=== PATIENT | male | born 1950 | race Caucasian/White ===

== ENCOUNTER 2025-02-20 11:39 | Day surgery (SDC) | payer MEDICARE, SELFPAY ==
--- OUTSIDE RECORDS SUMMARY | 2024-02-27 19:47 | XMS_ITS ---
Author Name [facility] [place] Address [address] [place] [address] Care Team Providers Care Transport Tech Name Role Phone LAUREANO MURILLO Primary Care Provide r Unavailable Insurance Providers: All historical and current Section Date Range: From patient's date of to the date document was created. This section includes the names of all active insurance providers for the patient. Insurance Provider Type of Coverage Plan Name Start of Policy Coverage End of Policy Coverage Group Number Member ID Insurance Provider's Telephone Number Policy Cheung's Name Patient's Relationship to Policy Cheung [place] SUPPLEMEN TAL MEDEX BRONZ Daxa Jun 20, 2014 [id number] Keven TAVERAS PATIENT MEDICARE (WNR) MEDICARE (M) PART A Sep 18, 2006 PART A [id number] Keven TAVERAS PATIENT MEDICARE (WNR) MEDICARE (M) PART B Sep 18, 2006 PART B [id number] Keven TAVERAS PATIENT Selected Encounter This section includes the information on record at [place] for the Encounter. Date/Time Encounter Type Encounter Description Reason Pro vider Source Feb 27, 2024 11:47 PM Outpatient Encounter ADMIN PAT ACTIVTIES (MASNONCT) IHE Encounter Template Text not used by [place] Plan of Treatment: Future Appointments (+ 6 months) and Future Tests (+/- 45 days) The Plan of Treatment section includes future care activities for the patient from all [place] [facility]. This section includes future appointments and future orders which are active, pending or scheduled. Future Appointments This section includes appointments that were scheduled to occur 6 months from the date of the Encounter, up to a maximum of 20 appointments. The data comes from all [place] treatment facilities. Appointment Date/Time Appointment Type Appointme nt Facility Name Jul 06, 2024 02:00 PM AMBULATORY - MEDICINE [facility] Social History: Smoking Status (Most current) and Tobacco Use (All prior to encounter date) This section includes the most current, and the historical, smoking and tobacco- related health factors from the [place] facility where the Encounter took place. Current Smoking Status This section includes the most current smoking, or tobacco-related health factor, from the [place] facility where the Encounter took place. Date/Time Current Smoking Status Comment Facil ity Sep 01, 2023 02:57 PM [facility] Tobacco Use History This section includes a history of the smoking, or tobacco-related health factors, that were collected on or before the date of the Encounter. The data comes from the [place] facility where the Encounter took place. Date/Time Smoking Status/Tobacco Use Comment F acility Apr 09, 2022 02:24 PM VA-TOBACCO FORMER USER [place] [facility] [place] [facility] Apr 09, 2022 02:24 PM VA-TOBACCO QUIT 1 TO < 5 YRS [place] [facility] [place] [facility] Jan 31, 2020 02:53 PM VA-TOBACCO FORMER USER [place] [facility] [place] [facility] Jan 31, 2020 02:53 PM VA-TOBACCO QUIT 1 TO < 5 YRS [place] [facility] [place] [facility] Feb 19, 2004 03:22 PM CURRENT SMOKER [place] [facility] Advance Directives: All historical and current Section Date Range: From patient's date of to the date document was created. This section includes ALL of a patient's completed or amended [place] Advance and Rescinded Directives. The entries below indicate that a directive exists for the patient, but an actual copy is not included with this document. The data comes from all [place] facilities. Date Advance Directives Provider Source Aug 02, 2019 ADVANCE DIRECTIVE ROCÍO WOODS [facility] Aug 02, 2019 ADVANCE DIRECTIVE WESTONLUIS KRISH [facility] May 13, 2004 ADVANCE DIRECTIVE KACY ROSARIO [facility] Encounter Notes: All associated encounter notes This section contains the clinical notes associated to the Encounter. Date/Time Encounter Note(s) Provider Source Mar 06, 2024 02:05 PM ADDENDUM: LOCAL TITLE: Addendum STANDARD TITLE: ADDENDUM DATE OF NOTE: MAR 06, 2024@14:05:14 ENTRY DATE: MAR 06, 2024@14:05:15 AUTHOR: MARLYN LAWLER EXP COSIGNER: URGENCY: STATUS: COMPLETED Patient contacted pharmacy call center again regarding renewal status of: [id number] ASCORBIC ACID 500MG TAB Please review and renew if appropriate. /xochitl/ Marlyn Lawler CPhT Acute Dialysis Registered Nurse, [place]/Pharmacy Customer Care Signed: 03/06/2024 14:05 Receipt Acknowledged By: 03/08/2024 06:30 /xochitl/ RAFAEL GONZALEZ NP NURSE PRACTITIONER for LAUREANO MURILLO 03/07/2024 10:52 /es/ HÉCTOR CORTES RN REGISTERED NURSE ====== --- Original Document --- 02/27/24 V1 PHARMACY CUSTOMER CARE MEDICATION RENEWAL: Date: Feb Division: [facility] referred by Pharmacy Call Center for medication renewal: Non-controlled/maintenan ce medication Medications requested: [id number] ASCORBIC ACID 500MG TAB Defer to primary care provider To be mailed . Please review and renew if appropriate. *This note was generated by [facility]/[place] Pharmacy Customer Care. If you have any questions or need assistance, do not contact this author. Please refer all questions to your local, on-site pharmacy departments. /xochitl/ JASON PARRA CPhT Acute Dialysis Registered Nurse, [place]/Pharmacy Customer Care Signed: 02/27/2024 23:47 Receipt Acknowledged By: 03/08/2024 06:29 /gricelda GONZALEZ NP NURSE PRACTITIONER for LAUREANO Baca LIDIA 03/01/2024 16:25 /xochitl/ HÉCTOR CORTES RN REGISTERED NURSE MARLYN LAWLER [place] [facility] Feb 27, 2024 11:47 PM PHARMACY NOTE: LOCAL TITLE: V1 PHARMACY CUSTOMER CARE MEDICATION RENEWAL STANDARD TITLE: PHARMACY NOTE DATE OF NOTE: FEB 27, 2024@23:47 ENTRY DATE: FEB 27, 2024@23:47:19 AUTHOR: JASON PARRA COSIGNER: URGENCY: STATUS: COMPLETED V1 PHARMACY CUSTOMER CARE MEDICATION RENEWAL Has ADDENDA Date: Feb Division: [facility] referred by Pharmacy Call Center for medication renewal: Non-controlled/maintenan ce medication Medications requested: [id number] ASCORBIC ACID 500MG TAB Defer to primary care provider To be mailed . Please review and renew if appropriate. *This note was generated by [facility]/[place] Pharmacy Customer Care. If you have any questions or need assistance, do not contact this author. Please refer all questions to your local, on-site pharmacy departments. /xochitl/ JASON PARRA CPhT Acute Dialysis Registered Nurse, [place]/Pharmacy Customer Care Signed: 02/27/2024 23:47 Receipt Acknowledged By: 03/08/2024 06:29 /gricelda GONZALEZ NP NURSE PRACTITIONER for TUCKERJOANNE Baca LIDIA 03/01/2024 16:25 /xochitl/ HÉCTOR CORTES RN REGISTERED NURSE 03/06/2024 ADDENDUM STATUS: COMPLETED Patient contacted pharmacy call center again regarding renewal status of: [id number] ASCORBIC ACID 500MG TAB Please review and renew if appropriate. /gricelda Lawler CPhT Acute Dialysis Registered Nurse, [place]/Pharmacy Customer Care Signed: 03/06/2024 14:05 Receipt Acknowledged By: * AWAITING SIGNATURE * TUCKER MURILLO 03/07/2024 10:52 /xochitl/ HÉCTOR CORTES RN REGISTERED NURSE JASON PARRA [facility]
--- OUTSIDE RECORDS SUMMARY | 2024-03-05 18:09 | XMS_ITS ---
Author Name [facility] [place] Address [address] [place] [address] Care Team Providers Care Vulcanizer Name Role Phone LAUREANO MURILLO Primary Care [...] TAL MEDEX BRONZ Daxa Jun 20, 2014 [id number] Keven TAVERAS PATIENT MEDICARE (WNR) MEDICARE (M) PART B Sep 18, 2006 PART B [id number] Keven TAVERAS PATIENT MEDICARE (WNR) MEDICARE (M) PART A Sep 18, 2006 PART A [id number] Keven TAVERAS PATIENT Selected Encounter This section includes the information on record at [place] for the Encounter. Date/Time Encounter Type Encounter Description Reason Pro vider Source Mar 05, 2024 10:09 PM Outpatient Encounter ADMIN PAT ACTIVTIES (MASNONCT) IHE Encounter Template Text not used by [place] Plan of Treatment: Future Appointments (+ 6 months) and Future Tests (+/- 45 days) The Plan of Treatment section includes future care activities for the patient from all [place] [facility]. This section includes future appointments and future orders which are active, pending or scheduled. Future Appointments This section includes appointments that were scheduled to occur 6 months from the date of the Encounter, up to a maximum of 20 appointments. The data comes from all [place] treatment facilities. Appointment Date/Time Appointment Type Appointme nt Facility Name Jul 06, 2024 02:00 PM AMBULATORY - MEDICINE [facility] Social History: Smoking Status (Most current) and Tobacco Use (All prior to encounter date) This section includes the most current, and the historical, smoking and tobacco- related health factors from the [place] facility where the Encounter took place. Current Smoking Status This section includes the most current smoking, or tobacco-related health factor, from the [place] facility where the Encounter took place. Date/Time Current Smoking Status Comment Facil ity Sep 01, 2023 02:57 PM [facility] Tobacco Use History This section includes a history of the smoking, or tobacco-related health factors, that were collected on or before the date of the Encounter. The data comes from the [place] facility where the Encounter took place. Date/Time Smoking Status/Tobacco Use Comment F acility Apr 09, 2022 02:24 PM VA-TOBACCO FORMER USER [place] [facility] [facility] Apr 09, 2022 02:24 PM VA-TOBACCO QUIT 1 TO < 5 YRS [place] [facility] [place] [facility] Jan 31, 2020 02:53 PM VA-TOBACCO FORMER USER [place] [facility] [place] [facility] Jan 31, 2020 02:53 PM VA-TOBACCO QUIT 1 TO < 5 YRS [place] [facility] [place] [facility] Feb 19, 2004 03:22 PM CURRENT SMOKER [place] C [facility] Advance Directives: All historical and current Section Date Range: From patient's date of to the date document was created. This section includes ALL of a patient's completed or amended [place] Advance and Rescinded Directives. The entries below indicate that a directive exists for the patient, but an actual copy is not included with this document. The data comes from all [place] facilities. Date Advance Directives Provider Source Aug 02, 2019 ADVANCE DIRECTIVE ROCÍO WOODS [facility] Aug 02, 2019 ADVANCE DIRECTIVE LUIS ONTIVEROS [place] C NTRL [place] [facility] May 13, 2004 ADVANCE DIRECTIVE KACY ROSARIO [facility] Encounter Notes: All associated encounter notes This section contains the clinical notes associated to the Encounter. Date/Time Encounter Note(s) Provider Source Mar 05, 2024 10:09 PM PHARMACY NOTE: LOCAL TITLE: PHARMACY CUSTOMER CARE MEDICATION RENEWAL STANDARD TITLE: PHARMACY NOTE DATE OF NOTE: MAR 05, 2024@22:09 ENTRY DATE: MAR 05, 2024@22:09:22 AUTHOR: OCTAVIO WINCHESTER EXP COSIGNER: URGENCY: STATUS: COMPLETED Date: Feb Division: [facility] referred by Pharmacy Call Center for medication renewal: Non-controlled/maintenanc e medication Medications requested: [id number] ASPIRIN 81MG EC TAB Defer to primary care provider To be mailed . Please review and renew if appropriate. *This note was generated by [facility]/[place] Pharmacy Customer Care. If you have any questions or need assistance, do not contact this author. Please refer all questions to your local, on-site pharmacy departments. /xochitl/ OCTAVIO WINCHESTER CPhT [employer], [place]/PHARMACY CUSTOMER CARE Signed: 03/05/2024 22:09 Receipt Acknowledged By: 03/08/2024 06:30 /xochitl/ RAFAEL GONZALEZ NP NURSE PRACTITIONER for LAUREANO MURILLO 03/07/2024 10:51 /es/ HÉCTOR CORTES RN REGISTERED NURSE OCTAVIO WINCHESTER [place] [facility]
--- OUTSIDE RECORDS SUMMARY | 2024-05-07 09:30 | XMS_ITS | Encounter Summary ---
Author Name [facility] [place] Address [address] [place] [address] Care Team Providers Care Clip Loading Machine Adjuster Name Role Phone LAUREANO MURILLO Primary Care [...] Relationship to Policy Cheung BCBS [place] [facility] ARMENDAR[facility] CARLYLE Mittal Jun 20, 2014 [id number] Keven TAVERAS PATIENT MEDICARE (WNR) MEDICARE (M) PART B Sep 18, 2006 PART B [id number] Keven TAVERAS PATIENT MEDICARE (WNR) MEDICARE (M) PART A Sep 18, 2006 PART A [id number] Keven TAVERAS PATIENT Selected Encounter This section includes the information on record at [place] for the Encounter. Date/Time Encounter Type Encounter Description Reason Pro vider Source May 07, 2024 01:30 PM Outpatient Encounter PRIMARY CARE/MEDICINE IHE Encounter Template Text not used by [place] Plan of Treatment: Future Appointments (+ 6 months) and Future Tests (+/- 45 days) The Plan of Treatment section includes future care activities for the patient from all [place] treatmentfacilities. This section includes future appointments and future orders which are active, pending or scheduled. Future Appointments This section includes appointments that were scheduled to occur 6 months from the date of the Encounter, up to a maximum of 20 appointments. The data comes from all [place] treatment facilities. Appointment Date/Time Appointment Type Appointme nt Facility Name Jul 06, 2024 02:00 PM AMBULATORY - MEDICINE [facility] Sep 13, 2024 03:00 PM AMBULATORY - MEDICINE [place] [facility] Oct 11, 2024 11:00 AM AMBULATORY - PSYCHIATRY SP [facility] Social History: Smoking Status (Most current) and Tobacco Use (All prior to encounter date) This section includes the most current, and the historical, smoking and tobacco- related health factors from the [place] facility where the Encounter took place. Current Smoking Status This section includes the most current smoking, or tobacco-related health factor, from the [place] facility where the Encounter took place. Date/Time Current Smoking Status Comment Facil ity Jan 02, 2021 10:00 AM VA-TOBACCO FORMER USER [place] Tobacco Use History This section includes a history of the smoking, or tobacco-related health factors, that were collected on or before the date of the Encounter. The data comes from the [place] facility where the Encounter took place. Date/Time Smoking Status/Tobacco Use Comment F acility Jan 02, 2021 10:00 AM VA-TOBACCO QUIT 1 TO < 5 YRS [place] May 04, 2018 01:25 PM VA-TOBACCO FORMER USER [place] May 04, 2018 01:25 PM VA-TOBACCO QUIT 1 TO < 5 YRS [place] October 20, 2017 07:33 AM QUIT TOBACCO USE 1 -7 YEARS AGO [place] May 24, 2017 11:00 AM QUIT TOBACCO USE I N PAST YEAR reports quitting Jul 2016 [place] Oct 07, 2016 10:34 AM QUIT TOBACCO USE I N PAST YEAR reports quitting 08/14/16 [place] Aug 12, 2016 10:04 AM CURRENT SMOKER declines smoking cessation grp or meds [place] Apr 08, 2016 11:34 AM CURRENT SMOKER does not want to stop [place] Sep 12, 2008 11:35 AM QUIT TOBACCO USE > 7 YEARS AGO [place] Jul 09, 2008 01:40 PM CURRENT SMOKER Patient smokes four ciggs on a daily bases. [place] Feb 22, 2008 03:38 PM V1-PT DECLINES REF TO TOBACCO CESS [facility] Feb 22, 2008 03:38 PM V1-PT DECLINES TOB ACCO CESSATION [facility] Feb 22, 2008 03:38 PM V1-PT THINKING ABO [place] QUIT TOBACCO USE [place] May 31, 2007 11:40 AM [facility] May 31, 2007 11:40 AM V1-PT DECLINES REF TO TOBACCO CESS [facility] May 31, 2007 11:40 AM V1-PT DECLINES TOB ACCO CESSATION [facility] May 31, 2007 11:40 AM V1-PT NOT INTEREST ED IN QUIT TOBACCO USE [place] November 02, 2006 09:48 AM V1-PT NOT INTEREST ED IN QUIT TOBACCO USE [place] May 02, 2006 09:08 AM CURRENT SMOKER 3-5 cigaretts daily [place] May 27, 2005 01:20 PM CURRENT SMOKER see above [place] Feb 27, 2004 09:05 AM CURRENT SMOKER smokes only 3 cigarettes [place] Feb 26, 2003 10:45 AM CURRENT SMOKER occasional use of tobacco [place] Sep 18, 2002 10:27 AM CURRENT SMOKER currently smokes 1 or 2 per day [place] November 01, 2001 02:14 PM HISTORY OF SMOKING quit 1970' [place] Advance Directives: All historical and current Section Date Range: From patient's date of to the date document was created. This section includes ALL of a patient's completed or amended [place] Advance and Rescinded Directives. The entries below indicate that a directive exists for the patient, but an actual copy is not included with this document. The data comes from all [place] facilities. Date Advance Directives Provider Source Aug 02, 2019 ADVANCE DIRECTIVE ROCÍO WOODS [facility] Aug 02, 2019 ADVANCE DIRECTIVE LUIS ONTIVEROS [place] [facility] May 13, 2004 ADVANCE DIRECTIVE KACY ROSARIO [facility] Encounter Notes: All associated encounter notes This section contains the clinical notes associated to the Encounter. Date/Time Encounter Note(s) Provider Source May 01, 2024 11:51 AM ADMINISTRATIVE NOT E: LOCAL TITLE: ADMINISTRATIVE NOTE STANDARD TITLE: ADMINISTRATIVE NOTE DATE OF NOTE: MAY 01, 2024@11:51 ENTRY DATE: MAY 01, 2024@11:51:36 AUTHOR: JAXON CORDOVA EXP COSIGNER: URGENCY: STATUS: COMPLETED [facility] [address] [place] [id number] [phone] * KEVIN TAVERAS [address], [place] [address] Date: MAY 01, 2024 re: This is a reminder of your upcoming PCP appt with LAUREANO MURILLO. Appointment Date: Apr@13:30 Appointment Type: In-person visit Fasting blood work NON fasting blood work CONFIRMED WITH THE , WILL BRING IN LABWORK FROM OUTSIDE UROLOGIST Sincerely, Office Staff for: LAUREANO MURILLO Primary Care Provider [facility] [address] [place] [id number] T [phone] F [phone] Upcoming Appointments: 05/07/2024 13:30 CWM/SO/PACT 5 06/07/2024 11:00 CWM/SO/VVC/MHC/[place] 09/13/2024 15:00 NHM/OPTOMETRY/NITHIN APPOINTMENT ABBREVIATION READ (SPOPC OR SO = [facility]) (GOPC OR GO = [address]) (NHM or NO = [facility]) (VVC - Video Call) (Tel-X Telephone Visit) (TH - Telehealth) /es/ JAXON DE DIOS Signed: 05/01/2024 11:52 JAXON CORDOVA [place]
--- OUTSIDE RECORDS SUMMARY | 2024-06-11 16:00 | XMS_ITS ---
Author Name [facility] [place] [facility] [place] Address [address] [place] [address] Care Team Providers Care Academy Director Name Role Phone LAUREANO MURILLO Primary Care [...] TAL MEDEX BRONZ Daxa Jun 20, 2014 [id number] Keven TAVERAS PATIENT MEDICARE (WNR) MEDICARE (M) PART A Sep 18, 2006 PART A [id number] Keven TAVERAS PATIENT MEDICARE (WNR) MEDICARE (M) PART B Sep 18, 2006 PART B [id number] Keven TAVERAS PATIENT Selected Encounter This section includes the information on record at [place] for the Encounter. Date/Time Encounter Type Encounter Description Reason Pro vider Source Jun 11, 2024 08:00 PM Outpatient Encounter ADMIN PAT ACTIVTIES (MASNONCT) IHE Encounter Template Text not used by [place] Plan of Treatment: Future Appointments (+ 6 months) and Future Tests (+/- 45 days) The Plan of Treatment section includes [facility] care [facility] the [facility] This section includes future appointments and future orders which are active, pending or scheduled. Future Appointments This section includes appointments that were scheduled to occur 6 months from the date of the Encounter, up to a maximum of 20 appointments. The data comes from all [place] treatment facilities. Appointment Date/Time Appointment Type Appointme nt Facility Name Jul 06, 2024 02:00 PM AMBULATORY - MEDICINE [facility] Sep 13, 2024 03:00 PM [facility] Oct 11, 2024 11:00 AM AMBULATORY - PSYCHIATRY [facility] Nov 19, 2024 01:00 PM AMBULATORY - MEDICINE [facility] Active, Pending, and Scheduled Orders This section includes a listing of several types of active, pending, and scheduled orders, including clinic medications orders, diagnostic test orders, procedure orders and consult orders; where the start date of the order is 45 days before the date of the Encounter or 45 days after the date of theEncounter. The data comes from all [facility]. Test Date/Time Test Type Test Details Facility Name Jul 08, 2024 12:00 AM Laboratory - Chemi stry Order OCCULT BLOOD FIT X1 SCREEN(IN-HOUSE) STOOL [facility] Social History: Smoking Status (Most current) and Tobacco Use (All prior to encounter date) This section includes the most current, and the historical, smoking and tobacco- related health factors from the [place] facility where the Encounter took place. Current Smoking Status This section includes the most current smoking, or tobacco-related health factor, from the [place] facility where the Encounter took place. Date/Time Current Smoking Status Comment Facil ity Sep 01, 2023 02:57 PM VA-TOBACCO NEVER USED [facility] Tobacco Use History This section includes a history of the smoking, or tobacco-related health factors, that were collected on or before the date of the Encounter. The data comes from the [place] facility where the Encounter took place. Date/Time Smoking Status/Tobacco Use Comment F acility Apr 09, 2022 02:24 PM VA-TOBACCO FORMER USER [place] [facility] [place] [facility] Apr 09, 2022 02:24 PM VA-TOBACCO QUIT 1 TO < 5 YRS [place] [facility] [place] [facility] Jan 31, 2020 02:53 PM VA-TOBACCO [facility] Jan 31, 2020 02:53 PM VA-TOBACCO QUIT 1 TO < 5 YRS [place] [facility] [place] [facility] Feb 19, 2004 03:22 PM CURRENT SMOKER [facility] Advance Directives: All historical and current Section Date Range: From patient's date of to the date document was created. This section includes ALL of a patient's completed or amended [place] Advance and Rescinded Directives. The entries below indicate that a directive exists for the patient, but an actual copy is not included with this document. The data comes from all [place] facilities. Date Advance Directives Provider Source Aug 02, 2019 ADVANCE DIRECTIVE ROCÍO WOODS Aug 02, 2019 ADVANCE DIRECTIVE [place]IS [place] [facility] May 13, 2004 ADVANCE DIRECTIVE KACY ROSARIO COUNTS INCLUDE 234 BEDS AT THE [facility] Encounter Notes: All associated encounter notes This section contains the clinical notes associated to the Encounter. Date/Time Encounter Note(s) Provider Source Jun 11, 2024 08:00 PM PHARMACY NOTE: LOCAL TITLE: PHARMACY CUSTOMER CARE MEDICATION RENEWAL STANDARD TITLE: PHARMACY NOTE DATE OF NOTE: JUN 11, 2024@20:00 ENTRY DATE: JUN 11, 2024@20:00:40 AUTHOR: VIANEY OWUSU COSIGNER: URGENCY: STATUS: COMPLETED Date: May Division: [facility] referred by Pharmacy Call Center for medication renewal: Non-controlled/maintenan ce medication Medications requested: [id number] IBUPROFEN 600MG TAB The is out of medication and would appreciate expedited delivery if available. Please contact the outpatient pharmacy for assistance with shipment Defer to primary care provider To be mailed . Please review and renew if appropriate. *This note was generated by [facility] Pharm[facility] Customer Care. If you have any questions or need assistance, do not contact this author. Please refer all questions to your local, on-site pharmacy departments. /xochitl/ VIANEY OWUSU CPhT [employer] Sales Representative, [place]/Pharmacy Customer Care Signed: 06/11/2024 20:01 Receipt Acknowledged By: 06/16/2024 18:18 /es/ LAUREANO MURILLO MD PHYSICIAN 06/15/2024 14:50 /es/ HÉCTOR CORTES RN REGISTERED NURSE VIANEY OWUSU [facility]
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
--- OUTSIDE RECORDS SUMMARY | 2024-07-11 11:50 | XMS_ITS ---
Author Name [place] Address [address] [place] [address] Care Team Providers Care Contact Center Director Name Role Phone LAUREANO MURILLO Primary [...] Member ID Insurance Provider's Telephone Number Policy Chueng's Name Patient's Relationship to Policy Cheung [place] SUPPLEMEN [facility] Daxa Jun 20, 2014 [id number] Keven TAVERAS PATIENT MEDICARE (WNR) MEDICARE (M) PART B Sep 18, 2006 PART B [id number] Keven TAVERAS PATIENT MEDICARE (WNR) MEDICARE (M) PART A Sep 18, 2006 PART A [id number] Keven TAVERAS PATIENT Selected Encounter This section includes the information on record at [place] for the Encounter. Date/Time Encounter Type Encounter Description Reason Pro vider Source Jul 11, 2024 03:50 PM Outpatient Encounter ADMIN PAT ACTIVTIES (MASNONCT) IHE Encounter Template Text not used by [place] Plan of Treatment: Future Appointments (+ 6 months) and Future Tests (+/- 45 days) The Plan of Treatment section includes future care activities for the [facility] [place] [facility] This section includes future appointments and future orders which are active, pending or scheduled. Future Appointments This section includes appointments that were scheduled to occur 6 months from the date of the Encounter, up to a maximum of 20 appointments. The data comes from all [facility]. Appointment Date/Time Appointment Type Appointme nt Facility Name Sep 13, 2024 03:00 PM [facility]UL[facility]ORY [facility] Oct 11, 2024 11:00 AM AMBULATORY - PSYCHIATRY [facility] Nov 19, 2024 01:00 PM AMBULATORY - MEDICINE [facility] Jan 03, 2025 11:30 AM AMBULATORY - PSYCHIATRY [facility] Active, Pending, and Scheduled Orders This section includes a listing of several types of active, pending, and scheduled orders, including clinic medications orders, diagnostic test orders, procedure orders and consult orders; where the start date of the order is 45 days before the date of the Encounter or 45 days after the date of theEncounter. The data comes from all [facility]. Test Date/Time Test Type Test Details Facility Name Jul 08, 2024 12:00 AM Laboratory - Chemi stry Order OCCULT BLOOD FIT X1 SCREEN(IN-HOUSE) STOOL [facility]ECES [facility] Social History: Smoking Status (Most current) and Tobacco Use (All prior to encounter date) This section includes the most current, and the historical, smoking and tobacco- related health factors from the [place] facility where the Encounter took place. Current Smoking Status This section includes the most current smoking, or tobacco-related health factor, from the [place] facility where the Encounter took place. Date/Time Current Smoking Status Comment Facil ity Sep 01, 2023 02:57 PM VA-TOBACCO NEVER USED [facility] Tobacco Use History This section includes a history of the smoking, or tobacco-related health factors, that were collected on or before the date of the Encounter. The data comes from the [place] facility where the Encounter took place. Date/Time Smoking Status/Tobacco Use Comment F acility Apr 09, 2022 02:24 PM [facility] Apr 09, 2022 02:24 PM VA-TOBACCO QUIT 1 TO < 5 YRS [facility] [place] [facility] Jan 31, 2020 02:53 PM VA-TOBACCO FORMER USER [facility] [place] [facility] Jan 31, 2020 02:53 PM VA-TOBACCO QUIT 1 TO < 5 YRS [facility] [place] [facility] Feb 19, 2004 03:22 PM CURRENT SMOKER [place] [facility] Advance Directives: All historical and current Section Date Range: From patient's date of to the date document was created. This section includes ALL of a patient's completed or amended [place] Advance and Rescinded Directives. The entries below indicate that a directive exists for the patient, but an actual copy is not included with this document. The data comes from all [place] facilities. Date Advance Directives Provider Source Aug 02, 2019 ADVANCE DIRECTIVE ROCÍO WOODS [facility] Aug 02, 2019 ADVANCE DIRECTIVE WESTONLUIS [place]HERFORD [place] [facility] May 13, 2004 ADVANCE DIRECTIVE KACY ROSARIO [facility] Encounter Notes: All associated encounter notes This section contains the clinical notes associated to the Encounter. Date/Time Encounter Note(s) Provider Source Jul 11, 2024 03:51 PM PHARMACY NOTE: LOCAL TITLE: PHARMACY CUSTOMER CARE MEDICATION RENEWAL STANDARD TITLE: PHARMACY NOTE DATE OF NOTE: JUL 11, 2024@15:51 ENTRY DATE: JUL 11, 2024@15:51:06 AUTHOR: SAMIRA HERNANDEZ COSIGNER: URGENCY: STATUS: COMPLETED Date: Jun Division: [place] Pt referred by Pharmacy Call Center for medication renewal: Non-controlled/maintenan ce medication Medications requested: [id number] IRBESARTAN 150MG TAB Defer to primary care provider To be mailed. Please review and renew if appropriate. *This note was generated by [facility] Pharmacy Customer Care. If you have any questions or need assistance, do not contact this author. Please refer all questions to your local, on-site pharmacy departments. /xochitl/ Samira Hernandez CPhT [employer], [place]/Pharmacy Customer Care Signed: 07/11/2024 15:51 Receipt Acknowledged By: 07/12/2024 23:45 /xochitl/ LAUREANO MURILLO MD PHYSICIAN 07/20/2024 10:52 /es/ BRONSON OLIVARES, RN REGISTERED NURSE for SAMIRA RAJPUT [facility]ITAL[facility] [place]
--- OUTSIDE RECORDS SUMMARY | 2024-07-26 13:32 | XMS_ITS ---
Author Name [facility] [place] [facility] [place] Address [address] [place] [address] Care Team Providers Care Grain Packer Name Role Phone LAUREANO MURILLO Primary Care [...] TAL MEDEX BRONZ Daxa Jun [birth year], 2014 [id number] Keven TAVERAS PATIENT MEDICARE (WNR) MEDICARE (M) PART A Sep 18, 2006 PART A [id number] Keven TAVERAS PATIENT MEDICARE (WNR) MEDICARE (M) PART B Sep 18, 2006 PART B [id number] Keven TAVERAS PATIENT Selected Encounter This section includes the information on record at [place] for the Encounter. Date/Time Encounter Type Encounter Description Reason Pro vider Source Jul 26, 2024 05:32 PM Outpatient Encounter ADMIN PAT ACTIVTIES (MASNONCT) IHE Encounter Template Text not used by [place] Plan of Treatment: Future Appointments (+ 6 months) and Future Tests (+/- 45 days) The Plan of Treatment section includes future care activities for the patient [facility] [place] [facility] This section includes future appointments and future orders which are active, pending or scheduled. Future Appointments This section includes appointments that were scheduled to occur 6 months from the date of the Encounter, up to a maximum of 20 appointments. The data comes from all [facility]. Appointment Date/Time Appointment Type Appointme nt Facility Name Sep 13, 2024 03:00 PM [facility] Oct 11, 2024 11:00 AM AMBULATORY - PSYCHIATRY [facility] Nov 19, 2024 01:00 PM AMBULATORY - MEDICINE [facility] Jan 03, 2025 11:30 AM AMBULATORY - PSYCHIATRY [facility] Active, Pending, and Scheduled Orders This section includes a listing of several types of active, pending, and scheduled orders, including clinic medications orders, diagnostic test orders, procedure orders and consult orders; where the start date of the order is 45 days before the date of the Encounter or 45 days after the date of theEncounter. The data comes from all [facility]. Test Date/Time Test Type Test Details Facility Name Jul 08, 2024 12:00 AM Laboratory - Chemi stry Order OCCULT BLOOD FIT X1 SCREEN(IN-HOUSE) STOOL FECES [facility] Social History: Smoking Status (Most current) and Tobacco Use (All prior to encounter date) This section includes the most current, and the historical, smoking and tobacco- related health factors from the [place] facility where the Encounter took place. Current Smoking Status This section includes the most current smoking, or tobacco-related health factor, from the [place] facility where the Encounter took place. Date/Time Current Smoking Status Comment Facil ity Sep 01, 2023 02:57 PM VA-TOBACCO NEVER USED [facility] Tobacco Use History This section includes a history of the smoking, or tobacco-related health factors, that were collected on or before the date of the Encounter. The data comes from the [place] facility where the Encounter took place. Date/Time Smoking Status/Tobacco Use Comment F acility Apr 09, 2022 02:24 PM [facility] Apr 09, 2022 02:24 PM VA-TOBACCO QUIT 1 TO < 5 YRS [facility] [place] [facility] Jan 31, 2020 02:53 PM VA-TOBACCO FORMER USER [facility] [place] [facility] Jan 31, 2020 02:53 PM VA-TOBACCO QUIT 1 TO < 5 YRS [facility] [place] [facility] Feb 19, 2004 03:22 PM CURRENT SMOKER [place] C [facility] Advance Directives: All historical and current Section Date Range: From patient's date of to the date document was created. This section includes ALL of a patient's completed or amended [place] Advance and Rescinded Directives. The entries below indicate that a directive exists for the patient, but an actual copy is not included with this document. The data comes from all [place] facilities. Date Advance Directives Provider Source Aug 02, 2019 ADVANCE DIRECTIVE ROCÍO WOODS Aug 02, 2019 ADVANCE DIRECTIVE WESTONLUIS RUTHERFORD [place] [facility] May 13, 2004 ADVANCE DIRECTIVE KACY ROSARIO [facility] Encounter Notes: All associated encounter notes This section contains the clinical notes associated to the Encounter. Date/Time Encounter Note(s) Provider Source Jul 26, 2024 05:32 PM PHARMACY NOTE: LOCAL TITLE: V1 PHARMACY CUSTOMER CARE MEDICATION RENEWAL STANDARD TITLE: PHARMACY NOTE DATE OF NOTE: JUL 26, 2024@17:32 ENTRY DATE: JUL 26, 2024@17:32:49 AUTHOR: OCTAVIO WINCHESTER COSIGNER: URGENCY: STATUS: COMPLETED V1 PHARMACY CUSTOMER CARE MEDICATION RENEWAL Has ADDENDA Date: Jul Division: [place] Pt referred by Pharmacy Call Center for medication renewal: Non-controlled/maintenance medication Medications requested: [id number] CARBOXYMETHYLCELLULOSE NA 0.5% OPH SOLN Defer to specialty clinic. To be mailed . Please review and renew if appropriate. *This note was generated by [facility] Pharmacy Customer Care. If you have any questions or need assistance, do not contact this author. Please refer all questions to your local, on-site pharmacy departments. /xochitl/ OCTAVIO WINCHESTER CPhT [employer] GUNNER SUPERINTENDENT, [place]/PHARMACY CUSTOMER CARE Signed: 07/26/2024 17:33 Receipt Acknowledged By: 07/27/2024 08:51 /xochitl/ Rohith Chew OD CHIEF OF OPTOMETRY 07/27/2024 ADDENDUM STATUS: COMPLETED ordered now for mail out as requested. /xochitl/ Rohith Chew OD CHIEF OF OPTOMETRY Signed: 07/27/2024 08:52 OCTAVIO WINCHESTER CNTRL [facility]
--- OUTSIDE RECORDS SUMMARY | 2024-09-13 11:00 | XMS_ITS ---
Author Name [facility] [place] [facility] [place] Address [address] [place] [address] Care Team Providers Care Cement Finisher Helper Name Role Phone LAUREANO MURILLO Primary Care [...] Policy Che[place] SUPPLEMEN TAL TANYA Mittal Jun 20, 2014 [id number] Keven TAVERAS PATIENT MEDICARE (WNR) MEDICARE (M) PART A Sep 18, 2006 PART A [id number] Keven TAVERAS PATIENT MEDICARE (WNR) MEDICARE (M) PART B Sep 18, 2006 PART B [id number] Keven TAVERAS PATIENT Selected Encounter This section includes the information on record at [place] for the Encounter. Date/Time Encounter Type Encounter Description Reason Provider Source Sep 13, 2024 03:00 PM OFFICE O/P EST MOD 30 MIN OPTOMETRY ICD-10-CM L71.8 Other SHARON Fitzpatrick E Encounter Template Text not used by [place] Assessments - Encounter Diagnoses This section includes the primary and secondary diagnoses documented for the Encounter. Date/Time Primary/Secondary Diagnosis Diagnosis Name Provider Source Dec 14, 2024 12:59 PM PRIMARY Other SHARON Fitzpatrick [facility] [place] [facility] Dec 14, 2024 12:59 PM SECONDARY Combined forms of age-related cataract, bilateral SHARON WELLER [facility] [place] [facility] Dec 14, 2024 12:59 PM SECONDARY Dry eye syndrome of bilateral lacrimal glands SHARON WELLER [facility] [place] [facility] Dec 14, 2024 12:59 PM SECONDARY Meibomian gland dysfnct left eye, upper and lower eyelids SHARON WELLER [facility] [place] [facility] Dec 14, 2024 12:59 PM SECONDARY Meibomian gland dysfnct right eye, upper and lower eyelids SHARON WELLER [facility] [place] [facility] Dec 14, 2024 12:59 PM SECONDARY Prediabetes SHARON WELLER [facility] [place] [facility] Dec 14, 2024 12:59 PM SECONDARY Unspecified blepharitis left upper eyelid SHARON WELLER [facility] [place] [facility] Dec 14, 2024 12:59 PM SECONDARY Unspecified blepharitis right upper eyelid SHARON WELLER [facility] [place] [facility] Plan of Treatment: Future Appointments (+ 6 months) and Future Tests (+/- 45 days) The Plan of Treatment section includes future care activities for the patient [facility] [place] [facility]. This section includes future appointments and future orders which are active, pending or scheduled. Future Appointments This section includes appointments that were scheduled to occur 6 months from the date of the Encounter, up to a maximum of 20 appointments. The data comes from all [place] treatment facilities. Appointment Date/Time Appointment Type Appointme nt Facility Name Oct 11, 2024 11:00 AM AMBULATORY - PSYCHIATRY [facility] Nov 19, 2024 01:00 PM AMBULATORY - MEDICINE [facility] Jan 03, 2025 11:30 AM AMBULATORY - PSYCHIATRY [facility] Active, Pending, and Scheduled Orders This section includes a listing of several types of active, pending, and scheduled orders, including clinic medications orders, diagnostic test orders, procedure orders and consult orders; where the start date of the order is 45 days before the date of the Encounter or 45 days after the date of theEncounter. The data comes from all [place] treatment facilities. Test Date/Time Test Type Test Details Facility Name Oct 06, 2024 12:00 AM Laboratory - Chemi stry Order OCCULT BLOOD FIT X1 SCREEN(IN-HOUSE) STOOL FECES [facility] Oct 06, 2024 12:00 AM Laboratory - Chemi stry Order PSA BLOOD (SST-SERUM) [facility] Oct 06, 2024 12:00 AM Laboratory - Chemi stry Order MICROALBUMIN CREATININE RATIO PANEL URINE (RANDOM) [facility] Social History: Smoking Status (Most current) and Tobacco Use (All prior to encounter date) This section includes the most current, and the historical, smoking and tobacco- related health factors from the [place] facility where the Encounter took place. Current Smoking Status This section includes the most current smoking, or tobacco-related health factor, from the [place] facility where the Encounter took place. Date/Time Current Smoking Status Comment Facil ity Sep 01, 2023 02:57 PM [facility]TO[facility]ACCO [facility] Tobacco Use History This section includes a history of the smoking, or tobacco-related health factors, that were collected on or before the date of the Encounter. The data comes from the [place] facility where the Encounter took place. Date/Time Smoking Status/Tobacco Use Comment F acility Apr 09, 2022 02:24 PM VA-TOBACCO FORMER USER [place] [facility] [place] [facility] Apr 09, 2022 02:24 PM VA-TOBACCO QUIT 1 TO < 5 YRS [place] [facility] [place] [facility] Jan 31, 2020 02:53 PM VA-TOBACCO FORMER USER [place] [facility] [place] [facility] Jan 31, 2020 02:53 PM VA-TOBACCO QUIT 1 TO < 5 YRS [place] [facility] [place] [facility] Feb 19, 2004 03:22 PM CURRENT SMOKER [place] [facility] Advance Directives: All historical and current Section Date Range: From patient's date of to the date document was created. This section includes ALL of a patient's completed or amended VA Advance and Rescinded Directives. The entries below indicate that a directive exists for the patient, but an actual copy is not included with this document. The data comes from all [place] facilities. Date Advance Directives Provider Source Aug 02, 2019 ADVANCE DIRECTIVE ROCÍO WOODS [facility] Aug 02, 2019 ADVANCE DIRECTIVE WESTONLUIS R[place]HERFORD [place] [facility] [place] [facility] May 13, 2004 ADVANCE DIRECTIVE KACY ROSARIO [facility] Encounter Notes: All associated encounter notes This section contains the clinical notes associated to the Encounter. Date/Time Encounter Note(s) Provider Source Sep 13, 2024 04:07 PM OPTOMETRY NOTE: LOCAL TITLE: OPTOMETRY NOTE STANDARD TITLE: OPTOMETRY NOTE DATE OF NOTE: SEP 13, 2024@16:07 ENTRY DATE: SEP 13, 2024@16:07:41 AUTHOR: ROHITH WELLER COSIGNER: URGENCY: STATUS: COMPLETED OPTOMETRY NOTE Has ADDENDA I saw this patient in conjunction with the student and agree with stated findings and plan as noted below history the elements of the physical exam now. Patient well-known to me last year July 12, 2023 returns today for follow-up. He has a history of rosacea facies with chronic meibomian gland dysfunction and mild bilateral dry eye disease as well as cataracts. He uses lubricating drops 2-4 times a day as needed with good effect with dry eye symptoms. 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 Encouraged to continue to use lubricating drops 3-4 times a day each eye. He has refills available. Order lid scrubs now for mail out. Nuclear sclerotic and cortical cataracts each eye not visually significant at present. Order new glasses today. Scant macular drusen around arcades as well as in the macula but without evidence of subretinal fluid, subretinal blood, exudate or thickening either eye. Presence of scant drusen did not meet criteria for initiation of ocular supplements at present. History of prediabetes without evidence of ocular complication or sequelae either eye. Plan: Patient education as noted above review all exam findings now. Continue use of lubricating drops and encouraged more frequent use each eye for bilateral dry eye disease. 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 Order glasses today. Return in 12 months or sooner if need be. Ophthalmic medication reconciliation: Lubricating drops 3-4 times a day each eye. ^^^^^^^^^^^^^^^^^^^^^^^^^^^^^^^ ^^^^^^^^^^^^^^^^^^^^^^^^^^^^^^^ ^^^^^^^^^^^^^^^^^^ ^^^^^^^^^^^^^^^^^^^^^^^^^^^^^^^ ^^^^^^^^^^^^^^^^^^^^^^^^^^^^^^^ ^^^^^^^^^^^^^^ Alerting optometry health tech to order glasses as noted below: RX INFORMATION OD +2.75 -1.50 X90 Add:0.00 Pzm:0.00 Dir: Prz2:0.00 Dir2: OS +2.75 -1.00 X90 Add:0.00 Pzm:0.00 Dir: Prz2:0.00 Dir2: FITTING INFORMATION FPD:67.5 NPD: [place]:R: L: SEG HT:R: L: Tint:None Shade:None FRAME: SLICK BLACK [id number] Right Lens: POLY SINGLE VISION PHOTOCHROMATIC KING 1.586 POLY Left Lens: POLY SINGLE VISION PHOTOCHROMATIC KING 1.586 POLY KLEAR ANTI-REFLECTIVE COATING Rx: [facility] KEVIN TAVERAS [id number] RX INFORMATION OD +5.25 -1.50 X90 Add:0.00 Pzm:0.00 Dir: Prz2:0.00 Dir2: OS +5.25 -1.50 X90 Add:0.00 Pzm:0.00 Dir: Prz2:0.00 Dir2: FITTING INFORMATION FPD:64.5 NPD:64.5 [place]:R: L: SEG HT:R: L: Tint:None Shade:None FRAME: US59 BROWN [id number] Right Lens: POLY SINGLE VISION PHOTOCHROMATIC KING 1.586 POLY Left Lens: POLY SINGLE VISION PHOTOCHROMATIC KING 1.586 POLY KLEAR ANTI-REFLECTIVE COATING Total time spent chart review, history, examining and counseling patient, entering orders with medical decision makin minutes -3 minutes for refraction equals 33 minutes. /xochitl/ Rohith Weller OD CHIEF OF OPTOMETRY Signed: 09/13/2024 16:25 Receipt Acknowledged By: 09/14/2024 16:14 /xochitl/ BONNIE MCKOY OPTOMETRY TECH 09/14/2024 ADDENDUM STATUS: COMPLETED Optometry Health Chemist Instrumentation ordered patient 2 pair(s) of SV eyeglasses on 09/13/2024 as directed by provider. OPT HT entered consult(s) for order on behalf of provider. /xochitl/ BONNIE MCKOY OPTOMETRY TECH Signed: 09/14/2024 16:17 ROHITH WELLER [place] [facility] [place] [facility] Sep 13, 2024 03:11 PM OPTOMETRY NOTE: LOCAL TITLE: OPTOMETRY NOTE STANDARD TITLE: OPTOMETRY NOTE DATE OF NOTE: SEP 13, 2024@15:11 ENTRY DATE: SEP 13, 2024@15:11:23 AUTHOR: MICHELE BERMAN EXP COSIGNER: ROHITH WELLER URGENCY: STATUS: COMPLETED Active problems - Computerized Problem List is the source for the followin. CAD - Coronary Artery Disease ([facility] [id number]) 2. Exposure to potentially hazardous substance ([facility] [id number]) 3. Heart murmur 4. Alcohol intake above recommended sensible limits 5. Erectile Dysfunction ([facility] [id number]) 6. Chronic constipation 7. Pertussis 8. Lyme disease 9. Benign essential hypertension (SNOMED CT [id number]) 10. Hyperlipidemia (SNOMED CT 06869306) 11. Primary malignant neoplasm of prostate 12. History of polyp of colon 13. Tobacco dependence in remission 14. Bipolar affective disorder, depressed 15. Gout 16. Prediabetes 17. 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) 18. Chronic post-traumatic stress disorder (SNOMED CT 729404392) 19. HEARING LOSS NOS Active Outpatient Medications (including Supplies): Active Outpatient Medications Status 1) AMLODIPINE BESYLATE 5MG TAB TAKE ONE TABLET BY MOUTH ONCE ACTIVE (S) DAILY FOR BLOOD PRESSURE/HEART, DO NOT TAKE WITH GRAPEFRUIT JUICE Indication: FOR HIGH BLOOD PRESSURE 2) ASCORBIC ACID 500MG TAB TAKE ONE TABLET BY MOUTH ONCE DAILY ACTIVE FOR VITAMIN/NUTRITION SUPPLEMENT Indication: FOR INADEQUATE VITAMIN C 3) ASPIRIN 81MG EC TAB TAKE ONE TABLET BY MOUTH ONCE DAILY TO ACTIVE PREVENT STROKE/HEART ATTACK Indication: FOR BLOOD CLOT PREVENTION FOLLOWING PCI 4) CARBOXYMETHYLCELLULOSE NA 0.5% OPH SOLN INSTILL 1 DROP INTO ACTIVE EACH EYE FOUR TIMES DAILY NEEDED Indication: FOR DRY EYE 5) CHOLECALCIF 10MCG (D3-400UNIT) TAB TAKE TWO TABLETS BY MOUTH ACTIVE ONCE DAILY FOR VITAMIN SUPPLEMENTATION Indication: FOR VITAMIN D DEFICIENCY 6) CYANOCOBALAMIN 250MCG TAB TAKE ONE TABLET BY MOUTH ONCE ACTIVE DAILY Indication: FOR PREVENTION OF VITAMIN B12 DEFICIENCY 7) DICLOFENAC NA 1% TOP GEL APPLY 4 GRAMS TOPICALLY FOUR TIMES ACTIVE A DAY FOR OSTEOARTHRITIS - USE DOSING CARD PROVIDED IN BOX Indication: FOR JOINT PAIN 8) IBUPROFEN 600MG TAB TAKE ONE TABLET BY MOUTH ONCE DAILY ACTIVE NEEDED TAKE WITH FOOD; FOR PAIN/INFLAMMATION/SWELLING 9) IRBESARTAN 150MG TAB TAKE ONE TABLET BY MOUTH ONCE DAILY ACTIVE INSTEAD OF LOSARTAN Indication: FOR HIGH BLOOD PRESSURE 10) LIDOCAINE 5% PATCH APPLY 1 PATCH TOPICALLY ONCE DAILY ACTIVE NEEDED FOR PAIN (LEAVE PATCH ON FOR 12 HOURS, THEN REMOVE PATCH) 11) MAGNESIUM OXIDE 250MG TAB TAKE ONE TABLET BY MOUTH EVERY TWO ACTIVE DAYS CONSTIPATION Indication: CONSTIPATION 12) POLYETHYLENE GLYCOL 3350 ORAL PWDR TAKE 17 GRAMS(FILL CAP TO ACTIVE 17GM LINE) BY MOUTH ONCE DAILY NEEDED [MIX WITH 4 TO 8OZ. OF BEVERAGE] Indication: FOR CONSTIPATION 13) PSYLLIUM ORAL PWD TAKE 2 TEASPOONFULS BY MOUTH ONCE DAILY ACTIVE NEEDED (MIX WITH AT LEAST 8OZ. OF WATER OR OTHER FLUID) Indication: FOR CONSTIPATION 14) QUETIAPINE FUMARATE 25MG TAB TAKE ONE-HALF TABLET BY MOUTH ACTIVE AT BEDTIME FOR MOOD Indication: PARANOIA 15) SIMVASTATIN 20MG TAB TAKE ONE-HALF TABLET BY MOUTH AT ACTIVE BEDTIME Active Non-VA Medications Status 1) Non-VA DOCUSATE NA 100MG CAP 100MG BY MOUTH ONCE DAILY ACTIVE 16 Total Medications Allergies: ATORVASTATIN, LISINOPRIL All medications including those prescribed by outside VA's, community providers, and all OTC meds were reviewed and reconciled with patient to the best of their abilities. This 74 year old MALE is seen today for annual CEE FREDDY: 09/10/23 Chief Complaint: Wants to get new DVO and NVO OHx: 1. Combined cataracts OU 2. BENNY OU 3. RE and presbyopia OU Ocular Medications: none (-) Pain: (-) GALLEGOS: (-) Diplopia: (-) Flashes: (-) Floaters: (-) Amaurosis Fugax/Tia's: (-) Eye Injury: (-) Eye Surgery: (-) TBI FOHx: (-) Glaucoma/ARMD/Blindness VITALS (most recent, as listed in the electronic record): B/P: 145/80 (07/06/2024 14:43) Pulse: 70 (07/06/2024 14:03) Temperature: 99.1 F [37.3 C] (07/06/2024 14:03) Weight: 171.2 lb [77.66 kg] (07/06/2024 14:03) Height: 66 in [167.6 cm] (02/01/2019 10:09) BMI: BMI: 27.7 PERTINENT LABS: HEMOGLOBIN A1C TREND Collection DT Spec HGBA1c 08/29/2023 09:07 BLOOD 5.8 H 02/22/2023 08:57 BLOOD 5.9 H 09/29/2022 09:02 BLOOD 5.7 H 07/19/2019 12:07 BLOOD 6.0 H 09/19/2015 11:05 BLOOD 5.8 H (-) Smoker/Length of Time/PPD: Current Rx with last BCVA: OD: +2.75-1.50 x090 20/20 OS: +2.75-1.00 x090 20/20 ADD:+2.50 DVA ( )sc ( x )cc - phoropter OD: 20/20-2 OS: 20/20 Pupils: PERRL (-)APD EOMs: SAFE OU, (-)Pain/Diplopia CVF (facial, peripheral): FTFC OU Subjective Refraction: OD: +3.00 -1.50 x080 20/20 OS: +2.75 -1.00 x090 20/20 Add:+2.50 20/20 Final SRx OD: +2.75-1.50 x090 OS: +2.75-1.00 x090 ADD:+2.50 All the above performed by student, reviewed by attending Anterior segment: Performed by student, repeated by attending Lids: Mild blepharitis OD>OS Conj: white and quiet OU Cornea: trc diffused SPKs OU (-)k spindle OU AC: D&Q OU Angles: 4x4 OU Iris: flat and clear OU Lens: 1+ NSC OU, 1+ ACC OU with 1-2 vacuoles OU (-)PXF OU Tonometry: Performed by student, reviewed by attending [ x] Childress [ ] iCare OD 14 mmHg OS 15 mmHg Time: 15:20 Last IOP OD: 12 OS: 12 Fundus exam: Dilated: xxxx Non dilated: Dilating Drops: 1GTT 1 % Tropicamide OU & 1GTT 2.5% Phenylephrine OU (Pt. ed. on side effects, dilation warning given and verbal consent obtained) Patient advised not to drive if they feel they have any symptoms which could affect their ability to drive safely. Patient advised not to engage in any activities which could put themselves or others at risk if they feel they have any symptoms which could affect their ability to perform those activities safely. Performed by student, repeated by attending Vit: clear OU C/D: 0.20 OU pink & healthy rim tissue Macula: OD: trc hard drusens (-) SRF/SRH OS: scant hard drusens (-) SRF/SRH PPole: trc hard drusens at ST and IT arcade A/V: 2/3 Vessels: normal caliber OU Periph: flat and intact (-)holes, tears, detachments 360 OU Assessment/Plan: 1. Prediabetic without any ocular complications OU - Stable - Monitor 2. Combined cataracts OU - Pt. ed. on findings - cataracts are not visually significant and that surgery is not necessary at this time - Ed. on importance of UV protection and on symptoms of glare - Continue to monitor 3. Macular drusens, mostly at the arcades OD>OS - Pt. ed on ocular neutraceutical therapy/diet/healthy lifestyle/sun protection - Monitor 4. Dry eyes OU; symptomatic with mild blepharitis OU - Pt. ed. on todays findings - Continue Refresh - Ed. pt. to use BID-QID OU even on days when eyes are not feeling dry - Monitor 5. Regular astigmatism and presbyopia OU - Stable - Ordering duplication for DVO and NVO Return to Clinic 1yr or earlier PRN Patient Education: Diabetes: Patient was educated regarding diabetes and related ocular complications including retinopathy and cataract formation as well as other related systemic complications. The importance of good blood sugar control, blood sugar testing as recommended by their PCP and the importance of timely follow up were all emphasized. /xochitl/ MICHELE BERMAN OPTOMETRY STUDENT Signed: 09/13/2024 16:26 /xochitl/ Rohith Weller OD CHIEF OF OPTOMETRY Cosigned: 09/13/2024 19:28 MICHELE BERMAN [place] [facility]
--- OUTSIDE RECORDS SUMMARY | 2024-10-11 07:00 | XMS_ITS | Encounter Summary ---
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 FOR BLOOD PRESSURE/HEART, DO NOT TAKE [...] IN BOX Indication: FOR JOINT PAIN 8) EYELID CLEANSER,EYE SCRUB PAD USE 1 PAD TOPICALLY ONCE DAILY ACTIVE Indication: BLEPHARITIS 9) IBUPROFEN 600MG TAB TAKE ONE TABLET BY MOUTH ONCE DAILY ACTIVE NEEDED TAKE WITH FOOD; FOR PAIN/INFLAMMATION/SWELLING 10) IRBESARTAN 150MG TAB TAKE ONE TABLET BY MOUTH ONCE DAILY ACTIVE INSTEAD OF LOSARTAN Indication: FOR HIGH BLOOD PRESSURE 11) LIDOCAINE 5% PATCH APPLY 1 PATCH TOPICALLY ONCE DAILY ACTIVE NEEDED FOR PAIN (LEAVE PATCH ON FOR 12 HOURS, THEN REMOVE PATCH) 12) MAGNESIUM OXIDE 250MG TAB TAKE ONE TABLET BY MOUTH EVERY TWO ACTIVE DAYS CONSTIPATION Indication: CONSTIPATION 13) POLYETHYLENE GLYCOL 3350 ORAL PWDR TAKE 17 GRAMS(FILL CAP TO ACTIVE 17GM LINE) BY MOUTH ONCE DAILY NEEDED [MIX WITH 4 TO 8OZ. OF BEVERAGE] Indication: FOR CONSTIPATION 14) PSYLLIUM ORAL PWD TAKE 2 TEASPOONFULS BY MOUTH ONCE DAILY ACTIVE NEEDED (MIX WITH AT LEAST 8OZ. 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 See C-SSRS 05/2024, same today The pt is probably low risk for suicide or violence -- the patient denied suicidal and violent ideation, but the [employer] Crisis Line information and number were reviewed w patient as a precaution. The patient also understands to call 911 or to go to ER in the event of an emergency. 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 Likewise, he does not feel he needs MAT for AUD Another discussion -- patient would like to CONTINUE LOW-DOSE SEROQUEL 12.5 MG QHS for mood/history of PI/ptsd/insomnia--and note that the patient sometimes takes a quarter of a tablet which is 6.25 mg at bedtime; and mood remains stable; no PI or delusional content. Pt previously tried to stop seroquel but could not sleep and felt better w the medication at low dose. I instructed pt to call clinic if any recurrent sx's (for example paranoia), in which case we will need to increase seroquel again; the patient agrees to call if needed The patient request medication he can take occasionally for anxiety, he does not want medication he has to take every day. We discussed options and reviewed HYDROXYZINE LOW-DOSE 10 MG EVERY 24 HOURS NEEDED FOR ANXIETY, patient would like to try this. I reviewed the side effect profile including risk of sedation with patient. I advised him not to take it before driving.I reviewed the medication instructions/plan, side effect profile, and treatment expectations with the patient. He discussed this with me and demonstrated good understanding. I again reviewed w pt the tx options for PTSD -- including ssri or prazosin -- he again does not want different medication at this time. rtc 2-3 months to see me for med f/u, rtc thr open access sooner prn or call prn The discussion with patient about treatments including medications involved shared decision making. The patient was educated about the rationale and plan for the psychiatric medications. Medication instructions were reviewed with the patient. Alternatives to treatment were discussed with the patient. The side effect profile of the psychiatric medications was reviewed with the patient. This also included discussion of potential drug interactions associated with psychiatric medication. The patient discussed/verbalized back the understanding of the medication, side effects, and the plan/instructions, and the patient asked good questions. The patient demonstrated reasonable understanding of the medication side effects and the above-mentioned issues. Thebenefits of psychiatric medications outweigh risks for this patient. The patient consents to medication treatment. I asked the patient to call me or to come to open access if the patient does not like the effect of psychiatric medication or if has side effects with psychiatric medication. The side effect profile of the atypical antipsychotic medication was discussed with the patient. The risk of EPS, weight gain, metabolic syndrome (including risk of diabetes and hyperlipidemia), sedation, dizziness, orthostatic hypotension, falling, and TD with the atypical antipsychotic agent was reviewed with the patient. This included discussion with patient that TD is potentially irreversible. The pt verbalized reasonable understanding of the side effect profile of the atypical antipsychotic medication. The patient agrees to the medication. The benefits of treatment outweigh risks for this patient. The patient's primary care physician follows blood pressure, weights, lipids, glucose MH AIMS Testing: AIMS (Mental Health Instrument) The patient was evaluated for symptoms of tardive dyskinesia using the AIMS. Total score for items 1-7: 0 MH Atyp Antipsych Metabol Syndrome : Lipid profile ordered at this encounter. Depression Screening: Perform PHQ-2 A PHQ-2 screen was performed. The score was 0 which is a negative screen for depression. Over the past two weeks, how often have you been bothered by the following problems? 1. Little interest or pleasure in doing things Not at all 2. Feeling down, depressed, or hopeless Not at all Medication Reconciliation: Outpatient: Has the patient been [...] whether with a VA or non-VA provider. /xochitl/ WILY RICHMOND MD STAFF PSYCHIATRIST Signed: 10/11/2024 11:35 Receipt Acknowledged By: 10/11/2024 12:57 /gricelda Chapa [employer] 10/11/2024 ADDENDUM STATUS: COMPLETED note that I also advised pt not to combine the hydroxyzine with alcohol, pt verbalized good understanding /gricelda RICHMOND MD STAFF PSYCHIATRIST Signed: 10/11/2024 11:46 10/11/2024 ADDENDUM STATUS: COMPLETED pt request referral for supportive counseling for anxiety - it is reasonable to refer pt to [facility], if space available /gricelda RICHMOND MD STAFF PSYCHIATRIST Signed: 10/11/2024 11:48 Receipt Acknowledged By: * AWAITING SIGNATURE * GLADYS MOREL,WILY FERNANDEZ
--- OUTSIDE RECORDS SUMMARY | 2024-10-11 18:40 | XMS_ITS ---
Author Name [facility] Address [address] [place] [address] Care Team Providers Care Pail Bailer Name Role Phone LAUREANO MURILLO Primary Care [...] Policy [place] BCBS [place] MEDICARE SUPPLEMEN [facility] Jun 20, 2014 [id number] Keven TAVERAS PATIENT MEDICARE (WNR) MEDICARE (M) PART B Sep 18, 2006 PART B [id number] Keven TAVERAS PATIENT MEDICARE (WNR) MEDICARE (M) PART A Sep 18, 2006 PART A [id number] Keven TAVERAS PATIENT Selected Encounter This section includes the information on record at [place] for the Encounter. Date/Time Encounter Type Encounter Description Reason Pro vider Source Oct 11, 2024 10:40 PM Outpatient Encounter ADMIN PAT ACTIVTIES (MASNONCT) [facility] Encounter Template Text not used by [facility] Plan of Treatment: Future Appointments (+ 6 months) and Future Tests (+/- 45 days) The Plan of Treatment section includes [facility] the [facility] This section includes future appointments and future orders which are active, pending or scheduled. Future Appointments This section includes appointments that were scheduled to occur 6 months from the date of the Encounter, up to a maximum of 20 appointments. The data comes from all [place] treatment facilities. Appointment Date/Time Appointment Type Appointme nt Facility Name Nov 19, 2024 01:00 PM AMBULATORY - MEDICINE [facility] Jan 03, 2025 11:30 AM AMBULATORY - PSYCHIATRY [facility] Active, Pending, and Scheduled Orders This section includes a listing of several types of active, pending, and scheduled orders, including clinic medications orders, diagnostic test orders, procedure orders and consult orders; where the start date of the order is 45 days before the date of the Encounter or 45 days after the date of theEncounter. The data comes from all [facility]. Test Date/Time Test Type Test Details Facility Name Oct 06, 2024 12:00 AM Laboratory - Chemi stry Order OCCULT BLOOD FIT X1 SCREEN(IN-HOUSE) STOOL FECES [facility] Oct 06, 2024 12:00 AM Laboratory - Chemi stry Order PSA BLOOD (SST-SERUM) [facility] Oct 06, 2024 12:00 AM Laboratory - Chemi stry Order MICROALBUMIN CREATININE RATIO PANEL URINE (RANDOM) [facility] Lab Results: +/- 30 days of the encounter This section includes the Chemistry and Hematology Lab Results on record with [facility] for the patient. Radiology Reports and Pathology Reports are provided separately, in subsequent sections. Lab Results This section contains the Chemistry/Hematology Results that were resulted 30 days before or 30 daysafter the date of the Encounter. Date/Time Source Result Type Result - Unit Interpretation Reference Range Specimen Type Comment Oct 17, 2024 09:10 AM [place] HEMOGLOBIN A1C PANEL BLOOD Specimen T ype: BLOOD Comment: Values obtained from A1C measurements can vary. For atypical A1C assays, a reported value of 7.0 could actually be between 6.72 and 7.28 if measured by a reference method. A reported value of 9.0 could actually be between 8.73 and 9.27. Ref: http://www.ngsp .org/CAPdata.as p Ordering Provider: TUCKER CABRALKA M Report Released Date/Time: Sep 05, 2024 08:33 AM Reporting Lab: [facility] [address] [address] Performing Lab: [facility] [address] [address] HEMOGLOBIN A1C 6.0 H 4.0-5.6 Oct 17, 2024 09:10 AM [place] PSA SERUM Sp ecimen Type: SERUM No comment entered. Ordering Provider: LAUREANO MURILLO Report Released Date/Time: Sep 05, 2024 08:33 AM Reporting Lab: [address] [address] Performing Lab: [facility] [address] [address] PSA 1.0 ng/mL 0.0-4.0 Oct 17, 2024 09:10 AM [place] URIC ACID SERUM Specimen Type: S JASON No comment entered. Ordering Provider: LAUREANO MURILLO Report Released Date/Time: Sep 05, 2024 08:33 AM Reporting Lab: [facility] [address] [address] Performing Lab: [facility] [address] [address] URIC ACID 7.0 mg/dL 3.7-7.7 Oct 17, 2024 09:10 AM [place] BASIC METABOLIC PANEL (fasting) SERUM Specimen Type: SERUM No comment entered. Ordering Provider: LAUREANO MURILLO Report Released Date/Time: Sep 05, 2024 08:33 AM Reporting Lab: [address] [address] Performing Lab: [facility] [address] [address] UREA NITROGEN 11 mg/dL 8-26 GLUCOSE 120 mg/dL H 65-100 SODIUM 140 mmol/L 136-145 POTASSIUM 4.3 mmol/L 3.5-5.1 CHLORIDE 105 mmol/L 98-107 CO2 26 meq/L 23-31 CALCIUM 9.4 mg/dL 8.8-10 CREATININE, Serum 0.76 mg/dL 0.72-1.25 eGFR(CKD-EPI 2020) >90 mL/min >60 Oct 17, 2024 09:10 AM [place] CBC AND DIFF (AUTO) BLOOD Specimen Ty pe: BLOOD No comment entered. Ordering Provider: LAUREANO MURILOL Report Released Date/Time: Sep 05, 2024 08:33 AM Reporting Lab[facility] [address] [facility] [address] Performing Lab: [facility] [address] [address] WBC 6.31 10*3/uL 4.50-11.00 RBC 4.59 10*6/uL [...] 10*3/uL 0.00-0.00 Oct 17, 2024 09:10 AM [place] LIPID PANEL FASTING SERUM Specimen Ty pe: SERUM No comment entered. Ordering Provider: WILY RICHMOND Report Released Date/Time: Oct 11, 2024 11:35 AM Reporting Lab: [facility] [address] [facility] [address] Performing Lab: [facility] [address] [facility] [address] CHOLESTEROL 195 mg/dL TRIGLYCERIDE 149 mg/dL 0-150 LDL calculated 107 mg/dL 0-129 CHOL/HDL 3.4 HDL CHOLESTEROL 58 mg/dL >40 Social History: Smoking Status (Most current) and Tobacco Use (All prior to encounter date) This section includes the most current, and the historical, smoking and tobacco- related health factors from the [place] facility where the Encounter took place. Current Smoking Status This section includes the most current smoking, or tobacco-related health factor, from the [place] facility where the Encounter took place. Date/Time Current Smoking Status Comment Berhane ity Sep 01, 2023 02:57 PM VA-TOBACCO NEVER USED [facility] Tobacco Use History This section includes a history of the smoking, or tobacco-related health factors, that were collected on or before the date of the Encounter. The data comes from the [place] facility where the Encounter took place. Date/Time Smoking Status/Tobacco Use Comment F acility Apr 09, 2022 02:24 PM VA-TOBACCO FORMER USER [facility] Apr 09, 2022 02:24 PM VA-TOBACCO QUIT 1 TO < 5 YRS [facility] Jan 31, 2020 02:53 PM VA-TOBACCO FORMER USER [facility] Jan 31, 2020 02:53 PM VA-TOBACCO QUIT 1 TO < 5 YRS [facility] Feb 19, 2004 03:22 PM CURRENT SMOKER HI C NTRL [facility] Advance Directives: All historical and current Section Date Range: From patient's date of to the date document was created. This section includes ALL of a patient's completed or amended [place] Advance and Rescinded Directives. The entries below indicate that a directive exists for the patient, but an actual copy is not included with this document. The data comes from all [place] facilities. Date Advance Directives Provider Source Aug 02, 2019 ADVANCE DIRECTIVE ROCÍO WOODS [facility] Aug 02, 2019 ADVANCE DIRECTIVE LUIS ONTIVEROS [facility] NTRL [facility] May 13, 2004 ADVANCE DIRECTIVE KACY ROSARIO EVAIRENA [facility] Encounter Notes: All associated encounter notes This section contains the clinical notes associated to the Encounter. Date/Time Encounter Note(s) Provider Source Oct 11, 2024 10:40 PM PHARMACY NOTE: LOCAL TITLE: V1 PHARMACY CUSTOMER CARE MEDICATION RENEWAL STANDARD TITLE: PHARMACY NOTE DATE OF NOTE: OCT 11, 2024@22:40 ENTRY DATE: OCT 11, 2024@22:40:54 AUTHOR: VIANEY OWUSU EXP COSIGNER: URGENCY: STATUS: COMPLETED Date: Sep Division: [facility] referred by Pharmacy Call Center for medication renewal: Non-controlled/maintenan ce medication Medications requested: [id number] LIDOCAINE 5% PATCH Defer to primary care provider To be mailed . Please review and renew if appropriate. *This note was generated by [facility]. If you have any questions or need assistance, do not contact this author. Please refer all questions to your local, on-site pharmacy departments. /xochitl/ VIANEY OWUSU CPhT Infrastructure Director, [place]/[facility] Customer [facility] Signed: 10/11/2024 22:41 Receipt Acknowledged By: 10/12/2024 17:07 /xochitl/ LAUREANO MURILLO MD PHYSICIAN * AWAITING SIGNATURE * HÉCTOR CORTES KATRINA M [facility]
--- OUTSIDE RECORDS SUMMARY | 2024-10-25 16:41 | XMS_ITS ---
Author Name [facility] [place] Organization [facility] [place] Address [address] [place] [address] Care Team Providers Care Shipper Receiver Name Role Phone LAUREANO MURILLO Primary Care [...] TAL MEDEX BRONZ Daxa Jun 20, 2014 [id number] Keven TAVERAS PATIENT MEDICARE (WNR) MEDICARE (M) PART B Sep 18, 2006 PART B [id number] Keven TAVERAS PATIENT MEDICARE (WNR) MEDICARE (M) PART A Sep 18, 2006 PART A [id number] Keven TAVERAS PATIENT Selected Encounter This section includes the information on record at [place] for the Encounter. Date/Time Encounter Type Encounter Description Reason Pro vider Source October 25, 2024 08:41 PM Outpatient Encounter ADMIN PAT ACTIVTIES (MASNONCT) IHE Encounter Template Text not used by [place] Plan of Treatment: Future Appointments (+ 6 months) and Future Tests (+/- 45 days) The Plan of Treatment section includes future care activities for the patient [facility] This section includes future appointments and future orders which are active, pending or scheduled. Future Appointments This section includes appointments that were scheduled to occur 6 months from the date of the Encounter, up to a maximum of 20 appointments. The data comes from all [facility]. Appointment Date/Time Appointment Type Appointme nt Facility Name Nov 19, 2024 01:00 PM AMBULATORY - MEDICINE [facility] Jan 03, 2025 11:30 AM AMBULATORY - PSYCHIATRY [facility] Apr 18, 2025 11:30 AM AMBULATORY - MEDICINE [facility] Active, Pending, and Scheduled Orders This section includes a listing of several types of active, pending, and scheduled orders, including clinic medications orders, diagnostic test orders, procedure orders and consult orders; where the start date of the order is 45 days before the date of the Encounter or 45 days after the date of theEncounter. The data comes from all [facility]. Test Date/Time Test Type Test Details Facility Name Oct 06, 2024 12:00 AM Laboratory - Chemi strHart [employer] Order OCCULT BLOOD FIT X1 SCREEN(IN-HOUSE) STOOL FECES [facility] Oct 06, 2024 12:00 AM Laboratory - Chemi stry Order PSA BLOOD (SST-SERUM) [facility] Oct 06, 2024 12:00 AM Laboratory - Chemi [place] Order MICROALBUMIN CREATININE RATIO PANEL URINE (RANDOM) [facility] Lab Results: +/- 30 days of the encounter This section includes the Chemistry and Hematology Lab Results on record with [place] for the patient. Radiology Reports and Pathology Reports are provided separately, in subsequent sections. Lab Results This section contains the Chemistry/Hematology Results that were resulted 30 days before or 30 daysafter the date of the Encounter. Date/Time Source Result Type Result - Unit Interpretation Reference Range Specimen Type Comment Oct 17, 2024 09:10 AM [facility] HEMOGLOBIN A1C PANEL BLOOD Specimen T ype: [...] Sep 05, 2024 08:33 AM Reporting Lab: [facility] [address] [address] Performing Lab: [facility]RL TRN [facility]ENTERUSETS [facility] [address] [address] HEMOGLOBIN A1C 6.0 H 4.0-5.6 Oct 17, 2024 09:10 AM [facility] PSA SERUM Sp ecimen Type: SERUM No comment entered. Ordering Provider: LAUREANO MURILLO Report Released Date/Time: Sep 05, 2024 08:33 AM Reporting Lab: [facility]ATRN [facility] [address] [address] Performing Lab: [facility]USE[address] [address] PSA 1.0 ng/mL 0.0-4.0 Oct 17, 2024 09:10 AM [facility] URIC ACID SERUM Specimen Type: S JASON No comment entered. Ordering Provider: LAUREANO MURILLO Report Released Date/Time: Sep 05, 2024 08:33 AM Reporting Lab: [facility]RL WSTRN [facility]ETS [facility] [address] [address] Performing Lab: [facility]ENTERRST. [facility]INC[facility]N [facility]ENTERUSE[address] [address] URIC ACID 7.0 mg/dL 3.7-7.7 Oct 17, 2024 09:10 AM [facility] BASIC METABOLIC PANEL (fasting) SERUM Specimen Type: SERUM No comment entered. Ordering Provider: LAUREANO MURILLO Report Released Date/Time: Sep 05, 2024 08:33 AM Reporting Lab: [facility]ATRN [facility]USE[address] [address] Performing Lab: [facility]RL TRN [facility]USE[address] [address] UREA NITROGEN 11 mg/dL 8-26 GLUCOSE 120 mg/dL H 65-100 SODIUM 140 mmol/L 136-145 POTASSIUM 4.3 mmol/L 3.5-5.1 CHLORIDE 105 mmol/L 98-107 CO2 26 meq/L 23-31 CALCIUM 9.4 mg/dL 8.8-10 CREATININE, Serum 0.76 mg/dL 0.72-1.25 eGFR(CKD-EPI 2020) >90 mL/min >60 Oct 17, 2024 09:10 AM [facility] CBC AND DIFF (AUTO) BLOOD Specimen Ty pe: BLOOD No comment entered. Ordering Provider: LAUREANO MURILLO Report Released Date/Time: Sep 05, 2024 08:33 AM Reporting Lab: [facility] [address] [address] Performing Lab: [facility] [address] [address] WBC 6.31 10*3/uL 4.50-11.00 RBC 4.59 10*6/uL [...] 10*3/uL 0.00-0.00 Oct 17, 2024 09:10 AM [facility] LIPID PANEL FASTING SERUM Specimen Ty pe: SERUM No comment entered. Ordering Provider: WILY RICHMOND Report Released Date/Time: Oct 11, 2024 11:35 AM Reporting Lab: [facility] [address] [address] Performing Lab: MS CNT WSN [facility] [address] [address] CHOLESTEROL 195 mg/dL TRIGLYCERIDE 149 mg/dL 0-150 LDL calculated 107 mg/dL 0-129 CHOL/HDL 3.4 HDL CHOLESTEROL 58 mg/dL >40 Social History: Smoking Status (Most current) and Tobacco Use (All prior to encounter date) This section includes the most current, and the historical, smoking and tobacco- related health factors from the [place] facility where the Encounter took place. Current Smoking Status This section includes the most current smoking, or tobacco-related health factor, from the [place] facility where the Encounter took place. Date/Time Current Smoking Status Comment Berhane oconnor Sep 01, 2023 02:57 PM VA-TOBACCO NEVER USED [facility] Tobacco Use History This section includes a history of the smoking, or tobacco-related health factors, that were collected on or before the date of the Encounter. The data comes from the [place] facility where the Encounter took place. Date/Time Smoking Status/Tobacco Use Comment F acility Apr 09, 2022 02:24 PM VA-TOBACCO FORMER USER [place] [facility] [place] [facility] Apr 09, 2022 02:24 PM VA-TOBACCO QUIT 1 TO < 5 YRS [facility] [place] [facility] Jan 31, 2020 02:53 PM VA-TOBACCO FORMER USER [place] [facility] [place] [facility] Jan 31, 2020 02:53 PM VA-TOBACCO QUIT 1 TO < 5 YRS [facility] [place] [facility] Feb 19, 2004 03:22 PM CURRENT SMOKER MS C NTRL W[facility] Advance Directives: All historical and current Section Date Range: From patient's date of to the date document was created. This section includes ALL of a patient's completed or amended VA Advance and Rescinded Directives. The entries below indicate that a directive exists for the patient, but an actual copy is not included with this document. The data comes from all [place] facilities. Date Advance Directives Provider Source Aug 02, 2019 ADVANCE DIRECTIVE ROCÍO WOODS Aug 02, 2019 ADVANCE DIRECTIVE LUIS ONTIVEROS [facility] May 13, 2004 ADVANCE DIRECTIVE ABRAHAMKACYMICK JULIAN [facility] Encounter Notes: All associated encounter notes This section contains the clinical notes associated to the Encounter. Date/Time Encounter Note(s) Provider Source October 25, 2024 08:41 PM PHARMACY NOTE: LOCAL TITLE: V1 PHARMACY CUSTOMER CARE MEDICATION RENEWAL STANDARD TITLE: PHARMACY NOTE DATE OF NOTE: OCTOBER 25, 2024@20:41 ENTRY DATE: OCTOBER 25, 2024@20:41:29 AUTHOR: VIANEY OWUSU EXP COSIGNER: URGENCY: STATUS: COMPLETED Date: October Division: [facility] referred by Pharmacy Call Center for medication renewal: Non-controlled/maintenance medication Medications requested: [id number] CYANOCOBALAMIN 250MCG TAB Defer to primary care provider To be mailed . Please review and renew if appropriate. *This note was generated by [facility] Pharmacy Customer Care. If you have any questions or need assistance, do not contact this author. Please refer all questions to your local, on-site pharmacy departments. /xochitl/ VIANEY OWUSU CPhT Computer Video Game Designer, [facility]/Pharmacy Customer Care Signed: 10/25/2024 20:41 Receipt Acknowledged By: 10/26/2024 11:42 /es/ LAUREANO MURILLO MD PHYSICIAN 10/31/2024 15:39 /es/ HÉCTOR CORTES RN REGISTERED NURSE VIANEY OWUSU [facility]
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
--- OUTSIDE RECORDS SUMMARY | 2024-11-20 18:05 | XMS_ITS | Encounter Summary ---
Author Name [facility] [place] Organization [place] Address [address] [place] [address] Care Team Providers Care Community Coordinator Name Role Phone LAUREANO MURILLO Primary Care [...] Policy [place] MEDICARE SUPPLEMEN [facility] Daxa Jun 20, 2014 [id number] Keven TAVERAS PATIENT MEDICARE (WNR) MEDICARE (M) PART B Sep 18, 2006 PART B [id number] Keven TAVERAS PATIENT MEDICARE (WNR) MEDICARE (M) PART A Sep 18, 2006 PART A [id number] Keven TAVERAS PATIENT Selected Encounter This section includes the information on record at [place] for the Encounter. Date/Time Encounter Type Encounter Description Reason Pro vider Source Nov 20, 2024 10:05 PM Outpatient Encounter ADMIN PAT ACTIVTIES (MASNONCT) IHE Encounter Template Text not used by [place] Plan of Treatment: Future Appointments (+ 6 months) and Future Tests (+/- 45 days) The Plan of Treatment section includes future care activities for the patient from all [place] [facility]. This section includes future appointments and future orders which are active, pending or scheduled. Future Appointments This section includes appointments that were scheduled to occur 6 months from the date of the Encounter, up to a maximum of 20 appointments. The data comes from all [facility]. Appointment Date/Time Appointment Type Appointme nt Facility Name Jan 03, 2025 11:30 AM AMBULATORY - PSYCHIATRY [facility] Apr 18, 2025 11:30 AM AMBULATORY - MEDICINE [facility] May 06, 2025 11:30 AM AMBULATORY - PSYCHIATRY [facility] Active, Pending, and Scheduled Orders This section includes a listing of several types of active, pending, and scheduled orders, including clinic medications orders, diagnostic test orders, procedure orders and consult orders; where the start date of the order is 45 days before the date of the Encounter or 45 days after the date of theEncounter. The data comes from all [facility]. Test Date/Time Test Type Test Details Facility Name Oct 06, 2024 12:00 AM Laboratory - Chemi stry Order OCCULT BLOOD FIT X1 SCREEN(IN-HOUSE) STOOL FECES [facility] Oct 06, 2024 12:00 AM Laboratory - Chemi stry Order PSA BLOOD (SST-SERUM) [facility] Oct 06, 2024 12:00 AM Laboratory - Chemi stry Order MICROALBUMIN CREATININE RATIO PANEL URINE (RANDOM) [facility] Social History: Smoking Status (Most current) and Tobacco Use (All prior to encounter date) This section includes the most current, and the historical, smoking and tobacco- related health factors from the [place] facility where the Encounter took place. Current Smoking Status This section includes the most current smoking, or tobacco-related health factor, from the [place] facility where the Encounter took place. Date/Time Current Smoking Status Comment Facil ity Nov 19, 2024 01:00 PM DE-TOBACCO NEVER U SED CIGARETTES [facility] [place] [facility] Tobacco Use History This section includes a history of the smoking, or tobacco-related health factors, that were collected on or before the date of the Encounter. The data comes from the [place] facility where the Encounter took place. Date/Time Smoking Status/Tobacco Use Comment F acility Nov 19, 2024 01:00 PM VA-TOBACCO NEVER U SED OTHER TYPE [facility] [place] [facility] Sep 01, 2023 02:57 PM VA-TOBACCO NEVER USED [facility] [place] [facility] Apr 09, 2022 02:24 PM VA-TOBACCO FORMER USER [facility] [place] [facility] Apr 09, 2022 02:24 PM VA-TOBACCO QUIT 1 TO < 5 YRS [facility] [place] [facility] Jan 31, 2020 02:53 PM VA-TOBACCO FORMER USER [facility] [place] [facility] Jan 31, 2020 02:53 PM VA-TOBACCO QUIT 1 TO < 5 YRS [facility] [place] [facility] Feb 19, 2004 03:22 PM CURRENT SMOKER [facility] [place] [facility] Advance Directives: All historical and current Section Date Range: From patient's date of to the date document was created. This section includes ALL of a patient's completed or amended [place] Advance and Rescinded Directives. The entries below indicate that a directive exists for the patient, but an actual copy is not included with this document. The data comes from all [place] facilities. Date Advance Directives Provider Source Aug 02, 2019 ADVANCE DIRECTIVE ROCÍO WOODS [facility] Aug 02, 2019 ADVANCE DIRECTIVE LUIS ONTIVEROS [facility] [place] [facility] May 13, 2004 ADVANCE DIRECTIVE KACY ROSARIO [facility] Encounter Notes: All associated encounter notes This section contains the clinical notes associated to the Encounter. Date/Time Encounter Note(s) Provider Source Nov 20, 2024 10:05 PM PHARMACY NOTE: LOCAL TITLE: PHARMACY CUSTOMER CARE MEDICATION RENEWAL STANDARD TITLE: PHARMACY NOTE DATE OF NOTE: NOV 20, 2024@22:05 ENTRY DATE: NOV 20, 2024@22:05:24 AUTHOR: SENDY STOLL COSIGNER: URGENCY: STATUS: COMPLETED Date: Nov Division: [facility] referred by Pharmacy Call Center for medication renewal: Non-controlled/maintenance medication Medications requested: [id number] CYCLOBENZAPRINE HCL 5MG TABLET Last Release Date: 11/02/23 Defer to primary care provider To be mailed . Please review and renew if appropriate. *This note was generated by [facility]/[place] Pharmacy Customer Care. If you have any questions or need assistance, do not contact this author. Please refer all questions to your local, on-site pharmacy departments. /xochitl/ SENDY STOLL CPhT Expediter Service Order, [place]/Pharmacy Customer Care Signed: 11/20/2024 22:05 Receipt Acknowledged By: 11/22/2024 07:23 /es/ LAUREANO MURILLO MD PHYSICIAN 11/21/2024 16:22 /xochitl/ HÉCTOR CORTES RN REGISTERED NURSE SENDY STOLL [facility]
--- OUTSIDE RECORDS SUMMARY | 2024-12-31 17:00 | XMS_ITS ---
Author Name [place] Address [address] [place] [address] Care Team Providers Care Certified Professional Ergonomist Name Role Phone LAUREANO MURILLO Primary Care [...] TAL MEDEX BRONZ Daxa Jun 20, 2014 [id number] Keven TAVERAS PATIENT MEDICARE (WNR) MEDICARE (M) PART A Sep 18, 2006 PART A [id number] Keven TAVERAS PATIENT MEDICARE (WNR) MEDICARE (M) PART B Sep 18, 2006 PART B [id number] Keven TAVERAS PATIENT Selected Encounter This section includes the information on record at [place] for the Encounter. Date/Time Encounter Type Encounter Description Reason Pro vider Source Dec 31, 2024 09:00 PM Outpatient Encounter ADMIN PAT ACTIVTIES (MASNONCT) IHE Encounter Template Text not used by [place] Plan of Treatment: Future Appointments (+ 6 months) and Future Tests (+/- 45 days) The Plan of Treatment section includes future care activities for the patient from all [place] [facility]. This section includes future appointments and future orders which are active, pending or scheduled. Future Appointments This section includes appointments that were scheduled to occur 6 months from the date of the Encounter, up to a maximum of 20 appointments. The data comes from all [place] treatment facilities. Appointment Date/Time Appointment Type Appointme nt Facility Name Jan 03, 2025 11:30 AM AMBULATORY - PSYCHIATRY [facility] Apr 18, 2025 11:30 AM AMBULATORY - MEDICINE [facility] May 06, 2025 11:30 AM AMBULATORY - PSYCHIATRY [facility] Social History: Smoking Status [...] Facil ity Nov 19, 2024 01:00 PM VA-TOBACCO NEVER U SED CIGARETTES [place] [facility] Tobacco Use History This section includes a history of the smoking, or tobacco-related health factors, that were collected on or before the date of the Encounter. The data comes from the [place] facility where the Encounter took place. Date/Time Smoking Status/Tobacco Use Comment F [facility] Nov 19, 2024 01:00 PM VA-TOBACCO NEVER U SED OTHER TYPE [facility] [place] [facility] Sep 01, 2023 02:57 PM VA-TOBACCO NEVER USED [facility] [place] [facility] Apr 09, 2022 02:24 PM VA-TOBACCO FORMER USER [facility] [place] [facility] Apr 09, 2022 02:24 PM VA-TOBACCO QUIT 1 TO < 5 YRS [facility] [place] [facility] Jan 31, 2020 02:53 PM VA-TOBACCO FORMER USER [facility] [place] [facility] Jan 31, 2020 02:53 PM VA-TOBACCO QUIT 1 TO < 5 YRS [facility] [place] [facility] Feb 19, 2004 03:22 PM CURRENT SMOKER [facility] [place] [facility] Advance Directives: All historical and current Section [...] Aug 02, 2019 ADVANCE DIRECTIVE ROCÍO WOODS [facility] Aug 02, 2019 ADVANCE DIRECTIVE WESTONLUIS Mittal [facility] May 13, 2004 ADVANCE DIRECTIVE ROSARIOKACY Burns ELIEL [facility] Encounter Notes: All associated encounter notes This section contains the clinical notes associated to the Encounter. Date/Time Encounter Note(s) Provider Source Dec 31, 2024 09:00 PM PHARMACY NOTE: LOCAL TITLE: PHARMACY CUSTOMER CARE MEDICATION RENEWAL STANDARD TITLE: PHARMACY NOTE DATE OF NOTE: DEC 31, 2024@21:00 ENTRY DATE: DEC 31, 2024@21:00:51 AUTHOR: ANDRE WALLACE I EXP COSIGNER: URGENCY: STATUS: COMPLETED Date: Dec Division: [place] Pt referred by Pharmacy Call Center for medication renewal: Non-controlled/maintenanc e medication Medications requested: [id number] ASCORBIC ACID 500MG TAB Defer to primary care provider To be mailed . Please review and renew if appropriate. *This note was generated by [facility]/[place] Pharmacy Customer Care. If you have any questions or need assistance, do not contact this author. Please refer all questions to your local, on-site pharmacy departments. /xochitl/ Andre Wallace CPhT Print Color Matcher, [place]/Pharmacy Customer Care Signed: 12/31/2024 21:03 Receipt Acknowledged By: 01/01/2025 01:38 /es/ LAUREANO MURILLO MD PHYSICIAN 01/24/2025 08:57 /es/ Jennifer Cannon RN Registered Nurse (RN) for ANDRE AHUJA I [place] [facility]
--- OUTSIDE RECORDS SUMMARY | 2025-01-03 07:30 | XMS_ITS | Encounter Summary ---
Author Name Department [place] Organization [place] Address [address] [place] [id number] Care Team Providers Care Oncology Rep Specialist Name Role Phone LAUREANO MURILLO Primary Care [...] DESIRE ARMENDARIZEX CARLYLE E Jun 20, 2014 [id number] Keven TAVERAS PATIENT MEDICARE (WNR) MEDICARE (M) PART A Sep 18, 2006 PART A [id number] Keven TAVERAS PATIENT MEDICARE (WNR) MEDICARE (M) PART B Sep 18, 2006 PART B [id number] Kevne TAVERAS PATIENT Selected Encounter This section includes the information on record at [place] for the Encounter. Date/Time Encounter Type Encounter Description Reason Provider Source Jan 03, 2025 11:30 AM OFFICE O/P EST MOD 30 MIN [facility] - IND ICD-10-CM F43.12 Post-traumatic stress disorder, chronic SANDEEP RICHMOND Encounter Template Text not used by [place] Assessments - Encounter Diagnoses This section includes the primary and secondary diagnoses documented for the Encounter. Date/Time Primary/Secondary Diagnosis Diagnosis Name Provider Source Jan 03, 2025 12:03 PM PRIMARY Post-traumatic stress disorder, chronic WILY RICHMOND [place] Plan of Treatment: Future Appointments (+ 6 months) and Future Tests (+/- 45 days) The Plan of Treatment section includes future care activities for the patient from all [place] treatmentfacilities. This section includes future appointments and future orders which are active, pending or scheduled. Future Appointments This section includes appointments that were scheduled to occur 6 months from the date of the Encounter, up to a maximum of 20 appointments. The data comes from all [place] treatment facilities. Appointment Date/Time Appointment Type Appointme nt Facility Name Apr 18, 2025 11:30 AM AMBULATORY - MEDICINE [facility] May 06, 2025 11:30 AM AMBULATORY - PSYCHIATRY [facility] Social History: Smoking Status (Most [...] place. Date/Time Current Smoking Status Comment Berhane itfrieda Jan 02, 2021 10:00 AM VA-TOBACCO FORMER USER [place] Tobacco Use History This section includes a history of the smoking, or tobacco-related health factors, that were collected on or before the date of the Encounter. The data comes from the [place] facility where the Encounter took place. Date/Time Smoking Status/Tobacco Use Comment F acility Jan 02, 2021 10:00 AM VA-TOBACCO QUIT 1 TO < 5 YRS [place] May 04, 2018 01:25 PM VA-TOBACCO FORMER USER [place] May 04, 2018 01:25 PM VA-TOBACCO QUIT 1 TO < 5 YRS [place] October 20, 2017 07:33 AM QUIT TOBACCO USE 1 -7 YEARS AGO [place] May 24, 2017 11:00 AM QUIT TOBACCO USE I N PAST YEAR reports quitting Jul 2016 [place] Oct 07, 2016 10:34 AM QUIT TOBACCO USE I N PAST YEAR reports quitting 08/14/16 [place] Aug 12, 2016 10:04 AM CURRENT SMOKER declines smoking cessation grp or meds [place] Apr 08, 2016 11:34 AM CURRENT SMOKER does not want to stop [place] Sep 12, 2008 11:35 AM QUIT TOBACCO USE > 7 YEARS AGO [place] Jul 09, 2008 01:40 PM CURRENT SMOKER Patient smokes four ciggs on a daily bases. [place] Feb 22, 2008 03:38 PM V1-PT [facility]F [facility] Feb 22, 2008 03:38 PM V1-PT DECLINES TOB ACCO CESSATION [facility] Feb 22, 2008 03:38 PM V1-PT THINKING ABO UT QUIT TOBACCO USE [place] May 31, 2007 11:40 AM CURRENT SMOKER [facility] May 31, 2007 11:40 AM V1-PT DECLINES REF TO TOBACCO CESS [facility] May 31, 2007 11:40 AM V1-PT DECLINES TOB ACCO CESSATION [facility] May 31, 2007 11:40 AM V1-PT NOT INTEREST ED IN QUIT TOBACCO USE [place] November 02, 2006 09:48 AM V1-PT NOT INTEREST ED IN QUIT TOBACCO USE [place] May 02, 2006 09:08 AM CURRENT SMOKER 3-5 cigaretts daily [place] May 27, 2005 01:20 PM CURRENT SMOKER see above [place] Feb 27, 2004 09:05 AM CURRENT SMOKER smokes only 3 cigarettes [place] Feb 26, 2003 10:45 AM CURRENT SMOKER occasional use of tobacco [place] Sep 18, 2002 10:27 AM CURRENT SMOKER currently smokes 1 or 2 per day [place] November 01, 2001 02:14 PM HISTORY OF SMOKING quit 1970's [place] Advance Directives: All historical and current Section [...] Aug 02, 2019 ADVANCE DIRECTIVE ROCÍO WOODS [facility] Aug 02, 2019 ADVANCE DIRECTIVE LUIS ONTIVEROS [facility] [place] [facility] May 13, 2004 ADVANCE DIRECTIVE KACY [facility] Encounter Notes: All associated encounter notes This section contains the clinical notes associated to the Encounter. Date/Time Encounter Note(s) Provider Source Jan 03, 2025 11:34 AM TELEHEALTH NOTE: LOCAL TITLE: [place] VIDEO CONNECT PSYCHIATRIST NOTE STANDARD TITLE: TELEHEALTH NOTE DATE OF NOTE: JAN 03, 2025@11:34 ENTRY DATE: JAN 03, 2025@11:34:31 AUTHOR: WILY RICHMOND EXP COSIGNER: URGENCY: STATUS: COMPLETED [facility] Connect (VVC) Standard Documentation VVC Clinician Resources Only: E911 (Emergency Call Relay Center): [phone] National Veterans Crisis Line - 988 then press #1. [facility] Suicide Coordinator [phone], Ext. [phone]; Back-up Ext. [phone] [place] Police, [place], [place] [phone] Introduction: Visit is being conducted by [place] [facility]. Farnam identified with 2 identifiers: [X] Full Name [X] Date of [ ] VA ID Card Emergency Plan: confirmed and/or provided the following information in case of emergency or technology failure. PATIENT PHONE - PHONE NUMBER [CELLULAR] - Is patient phone number correct, if not, enter below: 's phone number: KEVIN TAVERAS [address], [place], [address] 's present location and address for appointment: home Farnam's emergency contact name and phone number: chart reported that location is private and safe: Yes Informed Consent: informed of the risks and benefits of Telehealth video care. Farnam has the right to refuse video services. If refuses video visit, a unvi-sd-ehyl visit will be scheduled. verbalized consent for this video visit: Yes Farnam provided consent for any other persons present for visit: N/A If yes, who and relationship to patient: Secure visit: Visit was locked for security and privacy:Yes Does this visit involve laterality/specific side of body? N/A 35 minutes for encounter, including chart review, interview, charting chart reviewed Pt relatively stable, despite health stressors followed by primary care. Good mood. Denies depression and denies elevated mood. Affect brightens appropriately, no lability. Anxiety improved. PTSD sx's improved, but can fluctuate w stress level. He denies SI and violent ideation. No PI or delusions presented, and again denies any recent history of paranoid concerns. Denies AHs. Well organized thoughts. Speech normal. Has interests. Cognitive exam grossly intact. No slowing noted. Good self care. Another careful discussion about the Seroquel, the patient would like to keep the Seroquel the same, good response, see below. The pt has not needed prn hydroxyzine so far for anxiety, see below He denies psych med side effects. No daytime sedation. Reports psych med compliance pt again reports alcohol 2-3 glasses of wine per day typically. Again I encouraged the patient to reduce alcohol intake, (the patient previously reported that he stopped alcohol for about 2 months without difficulty during a gout exacerbation, but then resumed). Denies street drugs. pt lives w his ; very supportive. wt 170 lb 11/2024, pt reports 165 lb at home recently Active problems - Computerized Problem List is the source for the followin. CAD - Coronary Artery Disease ([facility] [id number]) 2. Exposure to potentially hazardous substance ([facility] [id number]) 3. Heart murmur 4. Alcohol intake above recommended sensible limits 5. Erectile Dysfunction ([facility] [id number]) 6. Chronic constipation 7. Pertussis 8. Lyme disease 9. Benign essential hypertension (SNOMED CT 1382918) 10. Hyperlipidemia (SNOMED CT 25447562) 11. Primary malignant neoplasm of prostate 12. History of polyp of colon 13. Tobacco dependence in remission 14. Bipolar affective disorder, depressed 15. Gout 16. Prediabetes 17. 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[place]) 18. Chronic post-traumatic stress disorder (SNOMED CT 151262668) 19. HEARING LOSS NOS Active Outpatient Medications [...] FOR PREVENTION OF VITAMIN B12 DEFICIENCY 7) CYCLOBENZAPRINE HCL 5MG TAB TAKE ONE TABLET BY MOUTH AT ACTIVE BEDTIME NEEDED Indication: FOR MUSCLE SPASM 8) DICLOFENAC NA 1% TOP GEL APPLY 4 GRAMS TOPICALLY FOUR TIMES ACTIVE A DAY FOR OSTEOARTHRITIS - USE DOSING CARD PROVIDED IN BOX Indication: FOR JOINT PAIN 9) DOCUSATE NA 100MG CAP TAKE ONE CAPSULE BY MOUTH ONCE DAILY ACTIVE TO SOFTEN STOOL Indication: FOR CONSTIPATION 10) EYELID CLEANSER,EYE SCRUB PAD USE 1 PAD TOPICALLY ONCE DAILY ACTIVE Indication: BLEPHARITIS 11) HYDROXYZINE HCL 10MG TAB TAKE ONE TABLET BY MOUTH EVERY 24 ACTIVE HOURS NEEDED Indication: FOR ANXIETY 12) IBUPROFEN 600MG TAB TAKE ONE TABLET BY MOUTH ONCE DAILY ACTIVE NEEDED TAKE WITH FOOD; FOR PAIN/INFLAMMATION/SWELLING 13) IRBESARTAN 150MG TAB TAKE ONE TABLET BY MOUTH ONCE DAILY ACTIVE INSTEAD OF LOSARTAN Indication: FOR HIGH BLOOD PRESSURE 14) LIDOCAINE 5% PATCH APPLY 1 PATCH TOPICALLY ONCE DAILY ACTIVE NEEDED FOR PAIN (LEAVE PATCH ON FOR 12 HOURS, THEN REMOVE PATCH) 15) POLYETHYLENE GLYCOL 3350 ORAL PWDR TAKE 17 GRAMS(FILL CAP TO ACTIVE 17GM LINE) BY MOUTH ONCE DAILY NEEDED [MIX WITH 4 TO 8OZ. OF BEVERAGE] Indication: FOR CONSTIPATION 16) PSYLLIUM ORAL PWD TAKE 2 TEASPOONFULS BY MOUTH ONCE DAILY ACTIVE NEEDED (MIX WITH AT LEAST 8OZ. OF WATER OR OTHER FLUID) Indication: FOR CONSTIPATION 17) QUETIAPINE FUMARATE 25MG TAB TAKE ONE-HALF TABLET BY MOUTH ACTIVE AT BEDTIME FOR MOOD Indication: PARANOIA 18) SIMVASTATIN 20MG TAB TAKE ONE-HALF TABLET BY MOUTH AT ACTIVE BEDTIME DIAGNOSIS: dsm-5 PTSD, chronic -- 70 % [...] ER in the event of an emergency. again discussed consider psychotherapy for anxiety/ptsd - but pt now declines this, he does not feel he needs this, but will call if he changes his mind We again discussed the patient's alcohol use-- including about the potential molder machine health effects, and I have advised the [...] PI/ptsd/insomnia--and note that the patient sometimes takes only a quarter of a tablet (which is 6.25 mg); and mood remains stable; no PI or delusional content. Pt previously tried to stop seroquel but could not sleep and felt better w the medication at low dose. I instructed pt to call clinic if any recurrent sx's (for example paranoia), in which case we may need to increase seroquel again; the patient agrees to call if needed Last appt, patient requested medication he can take occasionally for anxiety, he does not want medication he has to take every day. We discussed options and reviewed HYDROXYZINE LOW-DOSE 10 MG EVERY 24 HOURS NEEDED FOR ANXIETY, and I sent pt this, but so far pt has not needed. I again reviewed the side effect profile including risk of sedation with patient. I advised him not to take it before driving. Note that I also advised pt not to combine the hydroxyzine with alcohol, pt verbalized good understanding I again reviewed w pt the tx options for PTSD -- including ssri or prazosin -- he again does not want different medication at this time. rtc 4 months to see me for med f/u, [...] physician follows blood pressure, weights, lipids, glucose Medication Reconciliation: Outpatient: Has the patient been [...] whether with a VA or non-VA provider. MH AIMS Testing: AIMS (Mental Health Instrument) The patient was evaluated for symptoms of tardive dyskinesia using the AIMS. Total score for items 1-7: 0 /es/ WILY RICHMOND MD STAFF PSYCHIATRIST Signed: 01/03/2025 12:03 Receipt Acknowledged By: 01/03/2025 13:28 /xochitl/ Amy Salado ADVANCED RADIATION / CHEMISTRY TECHNICIAN WILY RICHMOND
--- OUTSIDE RECORDS SUMMARY | 2025-01-14 11:51 | XMS_ITS | Encounter Summary ---
Author Name [facility] [place] Organization [facility] [place] Address [address] [place] [address] Care Team Providers Care Named Account Executive Name Role Phone LAUREANO MURILLO Primary Care [...] TAL MEDEX BRONZ Daxa Jun 20, 2014 [id number] [phone] [id number] Keven TAVERAS PATIENT MEDICARE (WNR) MEDICARE (M) PART A Sep 18, 2006 PART A [id number] Keven TAVERAS PATIENT MEDICARE (WNR) MEDICARE (M) PART B Sep 18, 2006 PART B [id number] Keven TAVERAS PATIENT Selected Encounter This section includes the information on record at [place] for the Encounter. Date/Time Encounter Type Encounter Description Reason Pro vider Source Jan 14, 2025 03:51 PM Outpatient Encounter ADMIN PAT ACTIVTIES (MASNONCT) IHE Encounter Template Text not used by [place] Plan of Treatment: Future Appointments (+ 6 months) and Future Tests (+/- 45 days) The Plan of Treatment section includes future care activities for the patient from all [place] treatmentfaatrium healthities. This section includes future appointments and future [...] 18, 2025 11:30 AM AMBULATORY - MEDICINE [facility] May 06, 2025 11:30 AM AMBULATORY - PSYCHIATRY [facility] Social History: Smoking Status (Most current) [...] place. Date/Time Current Smoking Status Comment Facil anastasia Nov 19, 2024 01:00 PM VA-TOBACCO NEVER U SED CIGARETTES [place] [facility] Tobacco Use History This section includes a history of the smoking, or tobacco-related health factors, that were collected on or before the date of the Encounter. The data comes from the [place] facility where the Encounter took place. Date/Time Smoking Status/Tobacco Use Comment F basilio Nov 19, 2024 01:00 PM VA-TOBACCO NEVER U SED OTHER TYPE [facility] [place] [facility] Sep 01, 2023 02:57 PM VA-TOBACCO NEVER USED [facility] [place] [facility] Apr 09, 2022 02:24 PM VA-TOBACCO FORMER USER [facility] [place] [facility] Apr 09, 2022 02:24 PM VA-TOBACCO QUIT 1 TO < 5 YRS [facility] [place] [facility] Jan 31, 2020 02:53 PM VA-TOBACCO FORMER USER [facility] [place] [facility] Jan 31, 2020 02:53 PM VA-TOBACCO QUIT 1 TO < 5 YRS [facility] [place] [facility] Feb 19, 2004 03:22 PM CURRENT SMOKER [facility] [place] [facility] Advance Directives: All historical and current [...] Aug 02, 2019 ADVANCE DIRECTIVE ROCÍO WOODS [facility] Aug 02, 2019 ADVANCE DIRECTIVE [facility]IS [facility] May 13, 2004 ADVANCE DIRECTIVE KACY ROSARIO EVAIRENA [facility] Encounter Notes: All associated encounter notes This section contains the clinical notes associated to the Encounter. Date/Time Encounter Note(s) Provider Source Jan 14, 2025 03:51 PM PHARMACY NOTE: LOCAL TITLE: PHARMACY CUSTOMER CARE MEDICATION RENEWAL STANDARD TITLE: PHARMACY NOTE DATE OF NOTE: JAN 14, 2025@15:51 ENTRY DATE: JAN 14, 2025@15:51:55 AUTHOR: RAJI OCHOA EXP COSIGNER: URGENCY: STATUS: COMPLETED Date: Dec Division: [place] Pt referred by Pharmacy Call Center for medication renewal: Non-controlled/maintenance medication Medications requested: [id number] MAGNESIUM OXIDE 250MG TAB [id number] SIMVASTATIN 20MG TAB Defer to primary care provider To be mailed . Please review and renew if appropriate. *This note was generated by [facility] Pharmacy Customer Care. If you have any questions or need assistance, do not contact this author. Please refer all questions to your local, on-site pharmacy departments. /xochitl/ RAJI OCHOA CPhT Employee Relations Director, [facility]/Pharmacy Customer Care Signed: 01/14/2025 15:52 Receipt Acknowledged By: 01/14/2025 23:10 /xochitl/ LAUREANO MURILLO MD PHYSICIAN 01/18/2025 09:56 /xochitl/ HÉCTOR CORTES RN REGISTERED NURSE RAJI OCHOA [facility]
--- OUTSIDE RECORDS SUMMARY | 2025-02-07 23:59 | XMS_ITS | Continuity of Care Document ---
Author Organization [facility] Address [address] [facility] [place] [address]- Care Team Providers Care Cell Tuber Hand Name Role Phone Case Azul MD Primary Care Physician [phone] Encounter 01/31/25 - 02/07/25 [facility] [address], [address] [place] [address]- Attending Physician: Case Azul MD Admitting Physician: Case Azul MD Referring Physician: Case Azul MD Encounter Type: OutPatient One Time Allergies, Adverse Reactions, Alerts No Known Allergies Medications amLODIPine 5 mg oral tablet See Instructions, 2 tablets By Mouth Daily, Refills 0, Maintenance, 09/23/15 2:32:58 PM EDT, Instructions Replace Required Details Start Date: 09/23/15 Status: Ordered Repeat number: 1 aspirin 81 mg oral tablet 1 tablet = 81 mg, By Mouth, Daily, 0 Refills, Maintenance, 09/23/15 2:33:16 PM EDT Start Date: 09/23/15 Status: Ordered Repeat number: 1 Losartan = 100 mg, By Mouth, Daily, 0 Refills, Maintenance, 09/23/15 2:32:43 PM EDT Start Date: 09/23/15 Status: Ordered Repeat number: 1 Seroquel 25 mg oral tablet 6.5 mg, By Mouth, Daily, Dose has increased per pt, 0 Refills Start Date: 12/30/05 Status: Ordered Repeat number: 1 Vitamin C By Mouth, Daily, 0 Refills, Maintenance, 06/08/21 2:09:00 PM EST, Partial fill upon patient requestif the prescription is for a schedule II opioid drug. Start Date: 06/08/21 Status: Ordered Repeat number: 1 Vitamin C By Mouth, Daily, 0 Refills, Maintenance, 06/08/21 2:09:00 PM EST, Partial fill upon patient requestif the prescription is for a schedule II opioid drug. Start Date: 06/08/21 Status: Ordered Repeat number: 1 Vitamin D3 oral tablet 1 tablet = 10 mcg, By Mouth, Daily, 0 Refills, Maintenance, 06/08/21 2:10:00 PM EST, Partial fill upon patient request if the prescription is for a schedule II opioid drug. Start Date: 06/08/21 Status: Ordered Repeat number: 1 Zocor 10 mg oral tablet 10 mg, 1, tablet, By Mouth, 0 Refills Start Date: 08/30/05 Status: Ordered Repeat number: 1 Results Radiology Reports * Exam Date Time Procedure Performing Provider Status 01/31/25 9:19 AM Abdomen Comp Inc Dec ub and/or Erect Auth (Verified) Notes: (Abdomen Comp Inc Decub and/or Erect) Reason For Exam: constipation RESULT: Abdomen Comp Inc Decub and/or Erect Abdomen Comp Inc Decub and/or Erect 3 view INDICATION/CLINICAL QUESTION: Reason: constipation COMPARISON: CT of the abdomen and pelvis dated December 14, 2018. FINDINGS: Normal caliber small bowel loops. Gaseous distention of bowel in the central abdomen likely represents redundant sigmoid colon, with loops measuring up to 5.7 cm. No abnormal stool present in the colon. No evidence of pneumoperitoneum. No organomegaly, masses or calcifications. Numerous surgical clips throughout the low pelvis. Mild to moderate degenerative changes in the hips and spine. IMPRESSION: 1. Nonobstructive bowel gas pattern without abnormal colonic stool burden. 2. Nonspecific gaseous distention of what likely represents a loop of sigmoid colon in the mid abdomen, which may be within the spectrum of normal, with ileus and nonobstructive volvulus within the differential. Correlation with symptoms is recommended. WSN: [id number] Ordering Physician: Case Azul Dictated By: Vicente Azul MD Dictated Date/Time: 02/01/25 3:08 pm Reviewed By: Vicente Azul MD Signed By: Vicente Azul MD Signed Date/Time: 02/01/25 3:08 pm Transcribed By: ALYSSA Transcribed Date/Time: 02/01/25 3:01 pm Social History Social History Type Response Smoking Status Current some day smo ker entered on: 09/23/15 Sex Sex Representation Male (finding) Patient Care team information Care Team Personnel Name: Case Azul MD Position: [facility] Physician - Pediatrics Member Role: PCP Address: [address] [place] [address] [place] [address]- Telecom: Name: Debbie Mclean RN Position: [facility] Onco RN Member Role: Primary Care Nurse Care Team Related Persons Name: RAFAELA TAVERAS Insurance Providers Guarantor name: KEVIN TAVERAS Health Plan Information #: 1 Payer: MEDICARE B Payer Identifier: SANDY Member Number: [id number] Group Number: SANDY Subscriber Identifier: [id number] Relationship to Subscriber: self Coverage Type: NA Coverage Verification Date: NA Telecom: NA Address: Health Plan Information #: 2 Payer: MEDEX SECONDARY ONLY Payer Identifier: SANDY Member Number: [id number] Group Number: [id number] Subscriber Identifier: [id number] Relationship to Subscriber: self Coverage Type: Medicare Other Coverage Verification Date: Telecom: Address:
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
--- OUTSIDE RECORDS SUMMARY | 2025-02-11 10:22 | XMS_ITS | Continuity of Care Document ---
Author Name [facility] Organization [facility] Care Team Providers Care Engineer Technical Staff Name Role Phone [facility] Unavailable Unavailable Problems Combined list of problems from Department of Defense and Veterans Affairs facilities. It does not include entries that were removed or entered in error. Problem Status Onset Date Problem Type Date of Resolution Comments Source Lyme disease Active 013 Condition [place] Pertussis Active 013 Condition [place] Alcohol intake above recommended sensible limits [facility] Benign essential hypertension (SNOMED CT 6150867) Active Condition Mar 08, 2012 En tered By: CHEMO DODGE Comment: [phone] [place] Bipolar affective disorder, depressed Active Condition Sep 29, 2010 En tered By: WILY RICHMOND Comment: dx unclear -- no recent sx's; h/o delusions several yrs agoApr 2020 Entered By: WILY RICHMOND Comment: reviewedMay 2021 Entered By: WILY RICHMOND Comment: reviewedDec 2022 Entered By: WILY RICHMOND Comment: reviewed [facility] [place] [facility] CAD - Coronary Artery Disease (SCT 80303925) Active Condition [facility] Chronic constipation Active Condition [place] Chronic post-traumatic stress disorder (SNOMED CT 166597427) Active Condition May 04, 2018 En tered By: WILY RICHMOND Comment: reviewedApr 2020 Entered By: WILY RICHMOND Comment: reviewedMay 2021 Entered By: WILY RICHMOND Comment: reviewedDec 2022 Entered By: WILY RICHMOND Comment: reviewed [facility] [place] [facility] Erectile Dysfunction (SCT 076763197) Active Condition [place] Exposure to potentially hazardous substance (SCT 543971040072974) Active Condition Sep 27 4 Entered By: AUTUMN TERRY Comment: Entered automatically through MIR Problem List documentation program [facility] [place] [facility] Gout Active Condition Mar 22 06 Entered By: TRE GOULD Comment: reports that he develops sx when he comes to [facility] from food [facility] [place] [facility] HEARING LOSS NOS Active Condition [facility] [place] [facility] Heart murmur Active Condition [place] History of polyp of colon Active Condition May 02, 2006 En tered By: TATA LYON Comment: colonoscopy 05/31/04benign polypsDrCliffordSep 2011 Entered By: CHEMO DODGE Comment: 11/2011 wnl, no polyps- repeat 5-10 yrsAug 2018 Entered By: CHEMO DODGE Comment: 2018 + polyp repeat 5 years [facility] [place] [facility] Hyperlipidemia (SNOMED CT 52041243) Active Condition Jul 09, 2008 En tered By: JUDITH GA Comment: Myalgias w/ Dose > 20 MG Zocor [place] Prediabetes Active Condition [facility] [place] [facility] Primary malignant neoplasm of prostate Active Condition Jul 09, 2008 En tered By: JUDITH GA Comment: Total Prostatectomy 1997 ()Jul 09, 2008 Entered By: JUDITH GA Comment: PSA < 0.01 in JUN 28; sees private [facility] [place] Tobacco dependence in remission Active Condition May 24, 2017 En tered By: CHEMO DODGE Comment: QUIT 07/2016 [facility] [place] [facility] 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[place]) (ICD-9-CM 989.89) Active Condition [facility] [place] [facility] Delusional disorder Inactive Condition 03/22/2006 [facility] [place] [facility] Hypertension (SNOMED CT 35221375) Inactive Condition 05/24/2017 [place] Diagnosis: ICD-10-CM F43.12 Post-traumatic stress disorder, chronic Active Diagnosis [place] Diagnosis: ICD-10-CM C61 Malignant neoplasm of prostate Active Diagnosis [place] Diagnosis: ICD-10-CM L71.8 Other rosacea Active Diagnosis [facility] [place] [facility] Diagnosis: ICD-10-CM I10 Essential (primary) hypertension Active Diagnosis [place] Medications Combined list of outpatient medications from Department of Defense and Veterans Affairs facilities.Medications provided include 1) outpatient medications from the last 15 months, and 2) patient-reported medications. Medication Details Route Status Patient Instructions Prescription Expires Prescription Number Last Dispense Date Ordering Provider Order Date Order Qty Source AMLODIPINE BESYLATE 5MG TAB TAKE ONE TABLET BY MOUTH ONCE DAILY FOR HIGH BLOOD PRESSURE FOR BLOOD PRESSURE /HEART, DO NOT TAKE WITH GRAPEFRU IT JUICE ORAL ACTIVE 11/20/2025 [id number] 5 LAUREANO HILLMAN M 2024 90 [place] AMLODIPINE BESYLATE 5MG TAB TAKE ONE TABLET BY MOUTH ONCE DAILY FOR HIGH BLOOD PRESSURE FOR BLOOD PRESSURE /HEART, DO NOT TAKE WITH GRAPEFRU IT JUICE ORAL DISCONT INUED 10/29/2024 [id number] 5 LAUREANO HILLMAN M 2023 90 [place] ASCORBIC ACID 500MG TAB TAKE ONE TABLET BY MOUTH ONCE DAILY FOR VITAMIN/ NUTRITIO N SUPPLEME NT ORAL ACTIVE 01/02/2026 [id number] 5 LAUREANO HILLMAN M 2024 100 [place] ASCORBIC ACID 500MG TAB TAKE ONE TABLET BY MOUTH ONCE DAILY FOR VITAMIN/ NUTRITIO N SUPPLEME NT ORAL DISCONT INUED 03/09/2025 [id number] 5 RA MARY GONZALEZ 2023 100 [facility] [place] [facility] ASPIRIN 81MG TAB,EC TAKE ONE TABLET BY MOUTH ONCE DAILY TO PREVENT STROKE/H EART ATTACK ORAL ACTIVE 03/09/2025 [id number] 5 RA MARY GONZALEZ 2023 120 [facility] [place] [facility] ASPIRIN 81MG TAB,EC TAKE ONE TABLET BY MOUTH ONCE DAILY TO PREVENT STROKE/H EART ATTACK ORAL DISCONT INUED 02/07/2024 [id number] LAUREANO HILLMAN M 2022 120 [place] CARBOXYMETH YLCELLULOSE NA 0.5% SOLN,OPH INSTILL 1 DROP INTO EACH EYE FOUR TIMES DAILY NEEDED FOR DRY EYE OPHTHA LMIC ACTIVE 11/20/2025 [id number] 5 LAUREANO HILLMAN 2024 45 [place] CARBOXYMETH YLCELLULOSE NA 0.5% SOLN,OPH INSTILL 1 DROP INTO EACH EYE FOUR TIMES DAILY NEEDED FOR DRY EYE OPHTHA LMIC DISCONT INUED 07/28/2025 [id number] 5 NITHINKeven ICHELE 2024 45 [facility] [place] CHOLECALCIF RANDY 10MCG (400UNIT) TAB TAKE TWO TABLETS BY MOUTH ONCE DAILY FOR VITAMIN SUPPLEME NTATION ORAL 01/03/2025 [id number] LAUREANO HILLMAN 2023 200 [place] CYANOCOBALA MIN 250MCG TAB TAKE ONE TABLET BY MOUTH ONCE DAILY ORAL ACTIVE 10/27/2025 [id number] 5 LAUREANO HILLMAN 2024 100 [place] CYANOCOBALA MIN 250MCG TAB TAKE ONE TABLET BY MOUTH ONCE DAILY ORAL DISCONT INUED 10/29/2024 [id number] 4 LAUREANO HILLMAN 2023 100 [place] CYCLOBENZAP RINE HCL 5MG TAB TAKE ONE TABLET BY MOUTH AT BEDTIME NEEDED FOR MUSCLE SPASM ORAL ACTIVE 11/23/2025 [id number] 5 LAUREANO HILLMAN 2024 30 [place] DICLOFENAC NA 1% GEL,TOP APPLY 4 GRAMS TOPICALL Y FOUR TIMES A DAY FOR JOINT PAIN FOR OSTEOART HRITIS - USE DOSING CARD PROVIDED IN BOX TOPICA L ACTIVE 11/20/2025 [id number] 5 LAUREANO HILLMAN M 2024 100 [place] DICLOFENAC NA 1% GEL,TOP APPLY 4 GRAMS TOPICALL Y FOUR TIMES A DAY FOR JOINT PAIN FOR OSTEOART HRITIS - USE DOSING CARD PROVIDED IN BOX TOPICA L DISCONT INUED 01/03/2025 [id number] LAUREANO HILLMAN 2023 100 [place] DOCUSATE NA 100MG CAP TAKE ONE CAPSULE BY MOUTH ONCE DAILY TO SOFTEN STOOL ORAL ACTIVE 10/31/2025 [id number] 5 LAUREANO HILLMAN 2024 100 [place] EYELID CLEANSER,EY E SCRUB PAD USE 1 PAD TOPICALL Y ONCE DAILY BLEPHARI TIS TOPICA L ACTIVE 09/14/2025 [id number] 5 Keven WELLER ICHELE 2024 90 [facility] [place] HYDROXYZINE HCL 10MG TAB TAKE ONE TABLET BY MOUTH EVERY 24 HOURS NEEDED FOR ANXIETY ORAL ACTIVE 10/12/2025 [id number] 5 Luis Fernando RICHMOND 2024 15 [place] IBUPROFEN 600MG TAB TAKE ONE TABLET BY MOUTH ONCE DAILY NEEDED TAKE WITH FOOD; FOR PAIN/INF LAMMATIO N/SWELLI NG ORAL ACTIVE 06/17/2025 [id number] 5 LAUREANO HILLMAN M 2023 30 [place] IBUPROFEN 600MG TAB TAKE ONE TABLET BY MOUTH ONCE DAILY NEEDED TAKE WITH FOOD; FOR PAIN/INF LAMMATIO N/SWELLI NG ORAL DISCONT INUED 01/06/2025 [id number] 4 LAUREANO HILLMAN 2023 30 [place] IRBESARTAN 150MG TAB TAKE ONE TABLET BY MOUTH ONCE DAILY FOR HIGH BLOOD PRESSURE INSTEAD OF LOSARTAN ORAL ACTIVE 07/13/2025 [id number] 5 LAUREANO HILLMAN 2024 90 [place] IRBESARTAN 150MG TAB TAKE ONE TABLET BY MOUTH ONCE DAILY FOR HIGH BLOOD PRESSURE INSTEAD OF LOSARTAN ORAL DISCONT INUED 09/01/2024 [id number] LAUREANO HILLMAN 2023 90 [place] LIDOCAINE 5% PATCH APPLY 1 PATCH TOPICALL Y ONCE DAILY NEEDED FOR PAIN (LEAVE PATCH ON FOR 12 HOURS, THEN REMOVE PATCH) TOPICA L ACTIVE 10/13/2025 [id number] 5 LAUREANO HILLMAN 2024 30 [place] LIDOCAINE 5% PATCH APPLY 1 PATCH TOPICALL Y ONCE DAILY NEEDED FOR PAIN (LEAVE PATCH ON FOR 12 HOURS, THEN REMOVE PATCH) TOPICA L DISCONT INUED 01/14/2025 [id number] 5 LAUREANO HILLMAN 2023 30 [place] MAGNESIUM OXIDE 250MG TAB TAKE ONE TABLET BY MOUTH EVERY TWO DAYS CONSTIPA TION ORAL ACTIVE 01/15/2026 [id number] 5 LAUREANO HILLMAN 2024 45 [place] MAGNESIUM OXIDE 250MG TAB TAKE ONE TABLET BY MOUTH EVERY TWO DAYS CONSTIPA TION ORAL DISCONT INUED 10/29/2024 [id number] 5 LAUREANO HILLMAN 2023 45 [place] POLYETHYLEN E GLYCOL 3350 PWDR,ORAL TAKE 17 GRAMS(FI LL CAP TO 17GM LINE) BY MOUTH ONCE DAILY NEEDED FOR CONSTIPA TION [MIX WITH 4 TO 8OZ. OF BEVERAGE ] ORAL SUSPEND ED 07/07/2025 [id number] 5 LAUREANO HILLMAN 2024 510 [place] PSYLLIUM PWDR,ORAL TAKE 2 TEASPOON FULS BY MOUTH ONCE DAILY NEEDED FOR CONSTIPA TION (MIX WITH AT LEAST 8OZ. OF WATER OR OTHER FLUID) ORAL ACTIVE 07/07/2025 [id number] 5 LAUREANO HILLMAN 2024 390 [place] QUETIAPINE FUMARATE 25MG TAB TAKE ONE-HALF TABLET BY MOUTH AT BEDTIME FOR MOOD ORAL SUSPEND ED 01/04/2026 [id number] 5 Luis Fernando RICHMOND 2024 45 [place] QUETIAPINE FUMARATE 25MG TAB TAKE ONE-HALF TABLET BY MOUTH AT BEDTIME FOR MOOD ORAL DISCONT INUED 06/08/2025 [id number] 5 Luis Fernando RICHMOND 2023 45 [place] QUETIAPINE FUMARATE 25MG TAB TAKE ONE-HALF TABLET BY MOUTH AT BEDTIME FOR MOOD ORAL DISCONT INUED 10/06/2024 [id number] 4 Luis Fernando RICHMOND G 2023 45 [place] SIMVASTATIN 20MG TAB TAKE ONE-HALF TABLET BY MOUTH AT BEDTIME ORAL ACTIVE 01/15/2026 [id number] 5 RAMÓN DAY ANJANADimpleJASONDimpleJOANNE Keven 2024 45 [place] SIMVASTATIN 20MG TAB TAKE ONE-HALF TABLET BY MOUTH AT BEDTIME ORAL DISCONT INUED 01/29/2025 [id number] 5 Nyla FAM 2023 45 [place] Allergies, Adverse Reactions, Alerts Combined list of allergies from Department of Defense and Veterans Affairs facilities. It does not include entries that were removed or entered in error. Substance Category Reaction Severity Reaction type Status Date Reported Comments Source ATORVASTATIN Propensity to adverse reactions to drug (finding) AGITATION active 4 [facility] LISINOPRIL Propensity to adverse reactions to drug (finding) Cough active 2 [facility] Immunizations Combined list of available immunizations from the Department of Defense and Veterans Affairs facilities. Immunization Series Date Given Administered By Site Reaction Lot Number CVX Code Drug Senior Ui Ux Designer Status Comments Source TDAP 2021 115 complet ed [place] ZOSTER RECOMBINANT [address] [facility] [place] COVID-19 (MODERNA), MRNA, LNP-S, PF, 100 MCG/0.5 ML DOSE 2 2020 207 complet ed [facility] [place] COVID-19 (MODERNA), MRNA, LNP-S, PF, 100 MCG/0.5 ML DOSE 1 2020 207 complet ed [facility] PNEUMOCOCCAL POLYSACCHARID E PPV23 2016 33 complet ed [place] PNEUMOCOCCAL CONJUGATE PCV 13 2014 133 complet ed given in clinic SPOPC FILE ROOM ZOSTER (HISTORICAL) 2011 121 complet ed [facility] [place] [facility] DTAP, UNSPECIFIED FORMULATION [address] Eisenberg [facility] [place] [facility] [place] [facility] PNEUMOCOCCAL POLYSACCHARID E PPV23 2010 33 complet ed patient mailed in documenta tion [facility] [place] [facility] Results Combined list of recent chemistry, hematology and other laboratory results from Department of Defense and Veterans Affairs, ranging from 15 months to all on record, depending upon the facility. Order Name Results Value Reference Range Date Interpretation Specimen Comments Source BASIC METABOLIC PANEL (fasting) UREA NITROGEN [MASS/VOLUM E] IN SERUM OR PLASMA 11 mg/dL 8 - 26 10/17 Specimen Type: SERUM No comment entered. Ordering Provider: LAURE BOWMAN Report Released Date/Time: Sep 05, 2024 08:33 AM Reporting Lab: [facility] [address] [facility] [facility] [address] Performing Lab: [facility] [address] [facility] [address] [place] BASIC METABOLIC PANEL (fasting) GLUCOSE [MASS/VOLUM E] IN SERUM OR PLASMA 120 mg/dL 65 - 100 10/17 H Specimen Type: SERUM No comment entered. Ordering Provider: LAURE BOWMAN Report Released Date/Time: Sep 05, 2024 08:33 AM Reporting Lab: [facility] [place] [facility] [address] [facility] [address] Performing Lab: [facility] [address] [facility] [address] [place] BASIC METABOLIC PANEL (fasting) SODIUM [MOLES/VOLU ME] IN SERUM OR PLASMA 140 mmol/L 136 - 145 10/17 Specimen Type: SERUM No comment entered. Ordering Provider: LAURE BOWMAN Report Released Date/Time: Sep 05, 2024 08:33 AM Reporting Lab: [facility] [address] [address] Performing Lab: [facility] [address] [facility] [facility] [address] [place] BASIC METABOLIC PANEL (fasting) POTASSIUM [MOLES/VOLU ME] IN SERUM OR PLASMA 4.3 mmol/L 3.5 - 5.1 10/17 Specimen Type: SERUM No comment entered. Ordering Provider: LAURE BOWMAN Report Released Date/Time: Sep 05, 2024 08:33 AM Reporting Lab: [facility] [address] [facility] [address] Performing Lab: [address] [address] [place] BASIC METABOLIC PANEL (fasting) CHLORIDE [MOLES/VOLU ME] IN SERUM OR PLASMA 105 mmol/L 98 - 107 10/17 Specimen Type: SERUM No comment entered. Ordering Provider: LAURE BOWMAN Report Released Date/Time: Sep 05, 2024 08:33 AM Reporting Lab: [facility] [address] [address] Performing Lab: [facility] [address] [place] BASIC METABOLIC PANEL (fasting) CARBON DIOXIDE, TOTAL [MOLES/VOLU ME] IN SERUM OR PLASMA 26 meq/L 23 - 31 10/17 Specimen Type: SERUM No comment entered. Ordering Provider: LAURE BOWMAN Report Released Date/Time: Sep 05, 2024 08:33 AM Reporting Lab: [facility] [address] Performing Lab: [facility] [address] [place] BASIC METABOLIC PANEL (fasting) CALCIUM [MASS/VOLUM E] IN SERUM OR PLASMA 9.4 mg/dL 8.8 - 10 10/17 Specimen Type: SERUM No comment entered. Ordering Provider: LAURE BOWMAN Report Released Date/Time: Sep 05, 2024 08:33 AM Reporting Lab: [facility] [address] [address] Performing Lab: [facility] [address] [address] [place] BASIC METABOLIC PANEL (fasting) CREATININE [MASS/VOLUM E] IN SERUM OR PLASMA 0.76 mg/dL 0.72 - 1.25 10/17 Specimen Type: SERUM No comment entered. Ordering Provider: LAURE BOWMAN Report Released Date/Time: Sep 05, 2024 08:33 AM Reporting Lab: [facility] [address] [address] Performing Lab: [facility] [address] [address] [place] BASIC METABOLIC PANEL (fasting) GLOMERULAR FILTRATION RATE/1.73 SQ M.PREDICTED [VOLUME RATE/AREA] IN SERUM, PLASMA OR BLOOD BY CREATININE- BASED FORMULA (CKD-EPI 2020) >90mL/ min 60 10/17 Specimen Type: SERUM No comment entered. Ordering Provider: LAURE BOWMAN Report Released Date/Time: Sep 05, 2024 08:33 AM Reporting Lab: [facility] [address] [address] Performing Lab: [facility] [address] [address] [place] CBC AND DIFF (AUTO) LEUKOCYTES [#/VOLUME] IN BLOOD BY AUTOMATED COUNT 6.31 10*3/u L 4.50 - 11.00 10/17 Specimen Type: BLOOD No comment entered. Ordering Provider: LAURE BOWMAN Report Released Date/Time: Sep 05, 2024 08:33 AM Reporting Lab: [facility] [address] [address] Performing Lab: [facility] [address] [address] [place] CBC AND DIFF (AUTO) ERYTHROCYTE S [#/VOLUME] IN BLOOD BY AUTOMATED COUNT 4.59 10*6/u L 4.23 - 5.66 10/17 Specimen Type: BLOOD No comment entered. Ordering Provider: LAURE BOWMAN Report Released Date/Time: Sep 05, 2024 08:33 AM Reporting Lab: [facility] [place] [facility] [address] [address] Performing Lab: [facility] [place] [facility] [address] [facility] [address] [place] CBC AND DIFF (AUTO) HEMOGLOBIN [MASS/VOLUM E] IN BLOOD 15.2 g/dL 12.8 - 17 10/17 Specimen Type: BLOOD No comment entered. Ordering Provider: LAURE BOWMAN Report Released Date/Time: Sep 05, 2024 08:33 AM Reporting Lab: [facility] [address] [address] Performing Lab: [facility] [place] [address] [address] [place] CBC AND DIFF (AUTO) HEMATOCRIT [VOLUME FRACTION] OF BLOOD BY AUTOMATED COUNT 43.3 39.2 - 50.4 10/17 Specimen Type: BLOOD No comment entered. Ordering Provider: LAURE BOWMAN Report Released Date/Time: Sep 05, 2024 08:33 AM Reporting Lab: [facility] [place] [address] [address] Performing Lab: [facility] [place] [address] [address] [place] CBC AND DIFF (AUTO) MCV [ENTITIC VOLUME] BY AUTOMATED COUNT 94.3 fL 82 - 99 10/17 Specimen Type: BLOOD No comment entered. Ordering Provider: LAURE BOWMAN Report Released Date/Time: Sep 05, 2024 08:33 AM Reporting Lab: [facility] [place] [address] [address] Performing Lab: [facility] [place] [address] [address] [place] CBC AND DIFF (AUTO) MCHC [MASS/VOLUM E] BY AUTOMATED COUNT 35.1 g/dL 30.8 - 35.1 10/17 Specimen Type: BLOOD No comment entered. Ordering Provider: LAURE BOWMAN Report Released Date/Time: Sep 05, 2024 08:33 AM Reporting Lab: [facility] [place] [address] [address] Performing Lab: [facility] [place] [address] [address] [place] CBC AND DIFF (AUTO) PLATELETS [#/VOLUME] IN BLOOD BY AUTOMATED COUNT 254 10*3/u L 140 - 360 10/17 Specimen Type: BLOOD No comment entered. Ordering Provider: LAURE BOWMAN Report Released Date/Time: Sep 05, 2024 08:33 AM Reporting Lab: [facility] [place] [address] [address] Performing Lab: [facility] [place] [address] [address] [place] CBC AND DIFF (AUTO) PLATELET MEAN VOLUME [ENTITIC VOLUME] IN BLOOD BY AUTOMATED COUNT 10.0 fL 9.2 - 12.4 10/17 Specimen Type: BLOOD No comment entered. Ordering Provider: LAURE BOWMAN Report Released Date/Time: Sep 05, 2024 08:33 AM Reporting Lab: [facility] [place] [address] [address] Performing Lab: [facility] [place] [address] [address] [place] CBC AND DIFF (AUTO) ERYTHROCYTE DISTRIBUTIO N WIDTH [RATIO] BY AUTOMATED COUNT 11.1 12.0 - 16.0 10/17 L Specimen Type: BLOOD No comment entered. Ordering Provider: LAURE BOWMAN Report Released Date/Time: Sep 05, 2024 08:33 AM Reporting Lab: [facility] [place] [address] [place] [address] Performing Lab: [facility] [place] [facility] [address] [address] [place] CBC AND DIFF (AUTO) MONOCYTES [#/VOLUME] IN BLOOD BY AUTOMATED COUNT 0.68 10*3/u L 0.30 - 1.10 10/17 Specimen Type: BLOOD No comment entered. Ordering Provider: LAURE BOWMAN Report Released Date/Time: Sep 05, 2024 08:33 AM Reporting Lab: [facility] [place] [facility] [address] [address] Performing Lab: [facility] [place] [address] [address] [place] CBC AND DIFF (AUTO) MCH [ENTITIC MASS] BY AUTOMATED COUNT 33.1 pg 26.2 - 32.6 10/17 H Specimen Type: BLOOD No comment entered. Ordering Provider: LAURE BOWMAN Report Released Date/Time: Sep 05, 2024 08:33 AM Reporting Lab: [facility] [place] [address] [address] Performing Lab: [facility] [place] [address] [address] [place] CBC AND DIFF (AUTO) NEUTROPHILS /100 LEUKOCYTES IN BLOOD BY AUTOMATED COUNT 46.5 43.7 - 75.8 10/17 Specimen Type: BLOOD No comment entered. Ordering Provider: LAURE BOWMAN Report Released Date/Time: Sep 05, 2024 08:33 AM Reporting Lab: [facility] [place] [address] [address] Performing Lab: [facility] [place] [address] [address] [place] CBC AND DIFF (AUTO) LYMPHOCYTES /100 LEUKOCYTES IN BLOOD BY AUTOMATED COUNT 33.1 14.0 - 42.3 10/17 Specimen Type: BLOOD No comment entered. Ordering Provider: LAURE BOWMAN Report Released Date/Time: Sep 05, 2024 08:33 AM Reporting Lab: [facility]N [facility] [address] Performing Lab: [facility]N [facility] [address] [place] CBC AND DIFF (AUTO) MONOCYTES/1 00 LEUKOCYTES IN BLOOD BY AUTOMATED COUNT 10.8 5.1 - 13.7 10/17 Specimen Type: BLOOD No comment entered. Ordering Provider: LAURE BOWMAN Report Released Date/Time: Sep 05, 2024 08:33 AM Reporting Lab: [facility] [address] [address] Performing Lab: [facility] [address] [place] CBC AND DIFF (AUTO) EOSINOPHILS /100 LEUKOCYTES IN BLOOD BY AUTOMATED COUNT 8.4 0.4 - 6.8 10/17 H Specimen Type: BLOOD No comment entered. Ordering Provider: LAURE BOWMAN Report Released Date/Time: Sep 05, 2024 08:33 AM Reporting Lab: [facility] TRN [facility]ITAL[facility]ETS [address] [address] Performing Lab: [facility] TRN [facility] [address] [place] CBC AND DIFF (AUTO) BASOPHILS/1 00 LEUKOCYTES IN BLOOD BY AUTOMATED COUNT 1.0 0.1 - 2.0 10/17 Specimen Type: BLOOD No comment entered. Ordering Provider: LAURE BOWMAN Report Released Date/Time: Sep 05, 2024 08:33 AM Reporting Lab: [facility]TRN [facility]ITALUSETS [address] [address] Performing Lab: [facility] TRN [facility]ITALUSE[address] [address] [place] CBC AND DIFF (AUTO) NEUTROPHILS [#/VOLUME] IN BLOOD BY AUTOMATED COUNT 2.94 10*3/u L 2.20 - 7.60 10/17 Specimen Type: BLOOD No comment entered. Ordering Provider: LAURE BOWMAN Report Released Date/Time: Sep 05, 2024 08:33 AM Reporting Lab: [facility] [place] [facility] [address] [facility] [id number] Performing Lab: [facility] [place] [facility] [address] [facility] [address] [place] CBC AND DIFF (AUTO) LYMPHOCYTES [#/VOLUME] IN BLOOD BY AUTOMATED COUNT 2.09 10*3/u L 1.00 - 3.20 10/17 Specimen Type: BLOOD No comment entered. Ordering Provider: LAURE BOWMAN Report Released Date/Time: Sep 05, 2024 08:33 AM Reporting Lab: [facility] [place] [address] [address] Performing Lab: [facility] [place] [address] [address] [place] CBC AND DIFF (AUTO) EOSINOPHILS [#/VOLUME] IN BLOOD BY AUTOMATED COUNT 0.53 10*3/u L 0.03 - 0.44 10/17 H Specimen Type: BLOOD No comment entered. Ordering Provider: LAURE BOWMAN Report Released Date/Time: Sep 05, 2024 08:33 AM Reporting Lab: [facility] [place] [address] [address] Performing Lab: [facility] [place] [facility] [address] [facility] [address] [place] CBC AND DIFF (AUTO) BASOPHILS [#/VOLUME] IN BLOOD BY AUTOMATED COUNT 0.06 10*3/u L 0.01 - 0.13 10/17 Specimen Type: BLOOD No comment entered. Ordering Provider: LAURE BOWMAN Report Released Date/Time: Sep 05, 2024 08:33 AM Reporting Lab: [facility] [place] [address] [address] Performing Lab: [facility] [place] [address] [address] [place] CBC AND DIFF (AUTO) IMMATURE GRANULOCYTE S/100 LEUKOCYTES IN BLOOD BY AUTOMATED COUNT 0.2 0.0 - 0.7 10/17 Specimen Type: BLOOD No comment entered. Ordering Provider: LAURE BOWMAN Report Released Date/Time: Sep 05, 2024 08:33 AM Reporting Lab: [facility] [place] [address] [address] Performing Lab: [facility] [place] [address] [place] CBC AND DIFF (AUTO) IMMATURE GRANULOCYTE S [#/VOLUME] IN BLOOD BY AUTOMATED COUNT 0.01 10*3/u L 0.00 - 0.06 10/17 Specimen Type: BLOOD No comment entered. Ordering Provider: LAURE BOWMAN Report Released Date/Time: Sep 05, 2024 08:33 AM Reporting Lab: [facility] [place] [address] [address] Performing Lab: [facility] [place] [address] [address] [place] CBC AND DIFF (AUTO) NUCLEATED ERYTHROCYTE S/100 LEUKOCYTES [RATIO] IN BLOOD BY AUTOMATED COUNT 0.0 0.0 - 0.0 10/17 Specimen Type: BLOOD No comment entered. Ordering Provider: LAURE BOWMAN Report Released Date/Time: Sep 05, 2024 08:33 AM Reporting Lab: [facility] [place] [address] [address] Performing Lab: [facility] [place] [address] [address] [place] CBC AND DIFF (AUTO) NUCLEATED ERYTHROCYTE S [#/VOLUME] IN BLOOD BY AUTOMATED COUNT 0.00 10*3/u L 0.00 - 0.00 10/17 Specimen Type: BLOOD No comment entered. Ordering Provider: LAURE BOWMAN Report Released Date/Time: Sep 05, 2024 08:33 AM Reporting Lab: [facility] [place] [address] Performing Lab: [address] [address] [place] HEMOGLOBI N A1C PANEL HEMOGLOBIN A1C/HEMOGLO BIN.TOTAL IN BLOOD BY [facility] PROTOCOL 6.0 4.0 - 5.6 10/17 H Specimen Type: BLOOD Comment: Values obtained from A1C measurement s can vary. For atypical A1C assays, a reported value of 7.0 could actually be between 6.72 and 7.28 if measured by a reference method. A reported value of 9.0 could actually be between 8.73 and 9.27. Ref: http://www. ngsp.org/[place] Pdata.asp Ordering Provider: LAURE BOWMAN Report Released Date/Time: Sep 05, 2024 08:33 AM Reporting Lab: [address] [address] Performing Lab: [address] [address] [place] PSA PROSTATE SPECIFIC AG [MASS/VOLUM E] IN SERUM OR PLASMA BY IMMUNOASSAY 1.0 ng/mL 0.0 - 4.0 10/17 Specimen Type: SERUM No comment entered. Ordering Provider: LAURE BOWMAN Report Released Date/Time: Sep 05, 2024 08:33 AM Reporting Lab: [facility] [place] [address] Performing Lab: [facility] [address] [address] [place] URIC ACID URATE [MASS/VOLUM E] IN SERUM OR PLASMA 7.0 mg/dL 3.7 - 7.7 10/17 Specimen Type: SERUM No comment entered. Ordering Provider: LAURE BOWMAN Report Released Date/Time: Sep 05, 2024 08:33 AM Reporting Lab: [address] [address] Performing Lab: [facility] [address] [facility] [address] [place] LIPID PANEL FASTING CHOLESTEROL [MASS/VOLUM E] IN SERUM OR PLASMA 195 mg/dL 10/17 Specimen Type: SERUM No comment entered. Ordering Provider: MONIKA RICHMOND Report Released Date/Time: Oct 11, 2024 11:35 AM Reporting Lab: [facility] [address] [facility] [address] Performing Lab: [address] [address] [place] LIPID PANEL FASTING TRIGLYCERID E [MASS/VOLUM E] IN SERUM OR PLASMA 149 mg/dL 0 - 150 10/17 Specimen Type: SERUM No comment entered. Ordering Provider: MONIKA RICHMOND Report Released Date/Time: Oct 11, 2024 11:35 AM Reporting Lab: [address] [address] Performing Lab: [address] [address] [place] LIPID PANEL FASTING CHOLESTEROL IN LDL [MASS/VOLUM E] IN SERUM OR PLASMA BY CALCULATION 107 mg/dL 0 - 129 10/17 Specimen Type: SERUM No comment entered. Ordering Provider: MONIKA RICHMOND Report Released Date/Time: Oct 11, 2024 11:35 AM Reporting Lab: [address] [address] Performing Lab: [address] [address] [place] LIPID PANEL FASTING CHOLESTEROL .TOTAL/CHOL ESTEROL IN HDL [MASS RATIO] IN SERUM OR PLASMA 3.4 10/17 Specimen Type: SERUM No comment entered. Ordering Provider: MONIKA RICHMOND Report Released Date/Time: Oct 11, 2024 11:35 AM Reporting Lab: [address] [address] Performing Lab: [address] [address] [place] LIPID PANEL FASTING CHOLESTEROL IN HDL [MASS/VOLUM E] IN SERUM OR PLASMA 58 mg/dL 40 10/17 Specimen Type: SERUM No comment entered. Ordering Provider: MONIKA RICHMOND Report Released Date/Time: Oct 11, 2024 11:35 AM Reporting Lab: [address] [address] Performing Lab: [address] [address] [place] VITAMIN D (25-OH) 25-HYDROXYV ITAMIN D3 [MASS/VOLUM E] IN SERUM OR PLASMA 26 ng/mL 20 - 50 08/28 Specimen Type: SERUM No comment entered. Ordering Provider: LAURE BOWMAN Report Released Date/Time: Aug 07, 2023 09:33 AM Reporting Lab: [address] [address] Performing Lab: [address] [address] [place] FOLATE FOLATE [MASS/VOLUM E] IN SERUM OR PLASMA 13.68 ng/mL 5.2 08/28 Specimen Type: SERUM No comment entered. Ordering Provider: LAURE BOWMAN Report Released Date/Time: Aug 17, 2023 03:17 PM Reporting Lab: [facility] [address] [facility] [address] Performing Lab: [facility] [address] [facility] [address] [place] VITAMIN B-1 (THIAMINE )-(QU) THIAMINE [MOLES/VOLU ME] IN SERUM OR PLASMA 8 nmol/L 8 - 08/28 Specimen Type: PLASMA Comment: Vitamin supplementa tion within 24 hours prior to blood draw may affect the accuracy of the results. This test was developed and its analytical performance characteris tics have been determined by [facility] It has not been cleared or approved by the U.S. Food and Drug Administrat ion. This assay has been validated pursuant to the CLIA regulations and is used for clinical purposes. Test Performed by [facility], [address] [place] [address] Evgeny Villanueva M.D., Ph.D., Director of Laboratorie s , CLIA [id number] TEST PERFORMED AT: , Ordering Provider: LAURE BOWMAN Report Released Date/Time: Aug 17, 2023 03:17 PM Reporting Lab: [facility] [address] [facility] [address] Performing Lab: [facility] [address] VITAMIN B12 COBALAMIN (VITAMIN B12) [MASS/VOLUM E] IN SERUM OR PLASMA 454 pg/mL 200 - 900 08/28 Specimen Type: SERUM No comment entered. Ordering Provider: LAURE BOWMAN Report Released Date/Time: Aug 17, 2023 03:17 PM Reporting Lab: [facility] [address] [facility] [address] Performing Lab: [facility] [address] [facility] [address] [facility] Vital Signs Combined list of inpatient and outpatient Vital Signs from Department of Defense and Veterans Affairs, ranging from 12 months to all on record, depending upon the facility. Vital Sign Value Date Comments Source SYSTOLIC BLOOD PRESSURE 144 11/19/2024 13:08:39 [place] DIASTOLIC BLOOD PRESSURE 63 11/19/2024 13:08:39 [place] PULSE OXIMETRY 98 % 11/19/2024 13:08:39 [facility] WEIGHT 170 11/19/2024 13:08:39 [place] [facility] BMI 27 kg/m2 11/19/2024 13:08:39 [facility] [facility] TEMPERATURE 98.9 11/19/2024 13:08:39 [facility] PULSE 66 11/19/2024 13:08:39 [facility] SYSTOLIC BLOOD PRESSURE 166 07/06/2024 14:03:29 [place] DIASTOLIC BLOOD PRESSURE 69 07/06/2024 14:03:29 [place] PULSE OXIMETRY 98 07/06/2024 14:03:29 S [place] WEIGHT 171.2 07/06/2024 14:03:29 [place] BMI 28 kg/m2 07/06/2024 14:03:29 [place] TEMPERATURE 99.1 07/06/2024 14:03:29 SPR[place] CARLOS ENRIQUE PULSE 70 07/06/2024 14:03:29 [place] Encounters Combined list of: 1) Encounters from Department of Veterans Affairs facilities going backup to the last 18 months, not all [place] inpatient encounters are included; 2) Encounters from the Department of [facility] facilities going backup to 280 months. Location Location Details Encounter Type Encounter Number Reason For Visit Attending Provider ADM Date DC Date Status Disposition Source [facility] [place] [facility] Outpatient Encounter [id number] 08/25 [place] [facility] [place] [facility] [place] [facility] Outpatient Encounter [id number] 08/31 [facility] [place] [facility] OFF[facility] O/P EST MOD 30 MIN [id number] Diagnos is: ICD-10- CM I10 Essenti al (primar y) hyperte nsion ANJANA CASTELLANOS 08/31 [facility] [place] [facility] [place] [facility] Outpatient Encounter [id number] 09/01 [facility] [place] [facility] OFFICE O/P EST MOD 30 MIN [id number] Diagnos is: ICD-10- CM F43.12 Post-tr aumatic stress disorde r, chronic ST ZO RICHMOND G 10/05 [facility] [place] [facility] [place] [facility] Outpatient Encounter [id number] 10/19 [facility] [place] [facility] [place] [facility] Outpatient Encounter [id number] 10/23 [facility] [place] [facility] [place] En[facility] [id number] 10/23 [facility] [place] [facility] [place] [facility] En[facility] [id number] 11/22 [facility] [place] [facility] [place] En[facility] [id number] 12/07 [facility] [place] [facility] [facility] [place] En[facility] [id number] 01/02 [facility] [place] [facility] [facility] [place] OFF[place] O/P EST MOD 30 MIN [id number] Diagnos is: ICD-10- CM I10 Essenti al (primar y) hyperte nsion NADCONSUELO MOCK,OG BLAKE M 01/02 [place] [facility] En[facility] [id number] 01/04 [facility] [place] [facility] [place] En[facility] [id number] 01/04 [facility] [place] [facility] [facility] [place] En[facility] [id number] 01/04 [facility] [place] [facility] [facility] [place] En[facility] [id number] 01/07 [facility] [place] [facility] [place] En[facility] [id number] 01/10 [facility] [place] [facility] [facility] [place] [facility] En[facility] [id number] 01/10 [facility] [place] [facility] [place] En[facility] [id number] 01/11 [facility] [place] [facility] [facility] [place] En[facility] [id number] 01/22 [facility] [place] [facility] [place] En[facility] [id number] 01/27 [facility] [place] [facility] [place] OFFICE O/P EST MOD 30 MIN [id number] Diagnos is: ICD-10- CM F43.12 Post-tr aumatic stress disorde r, chronic ST ZO R[place] G 02/06 [place] [facility] En[facility] [id number] 02/26 [facility] [place] [facility] [place] En[facility] [id number] 03/05 [facility] [place] [facility] [facility] [place] En[facility] [id number] 05/02 [facility] [place] [facility] [place] En[place] [id number] [place] En[place] [id number] Diagnos is: ICD-10- CM F43.12 Post-tr aumatic stress disorde r, chronic RICHMOND,ST EPHEN G 06/07 [place] [facility] [id number] 06/11 [facility] [place] [facility] [place] En[facility] [id number] 07/06 [facility] [place] [facility] OFFICE O/P EST LOW 20 MIN [id number] Diagnos is: ICD-10- CM I10 Essenti al (primar y) hyperte nsion NADANJANA MISTRYJOANNE M 07/06 [facility] [place] [facility] [place] [facility] Encounter [id number] [facility] [place] [facility] [place] [facility] Outpatient Encounter [id number] [facility] [place] [facility] [place] [facility] Outpatient Encounter [id number] 09/03 [facility] [place] [facility] [place] [facility] OFFICE O/P EST MOD 30 MIN [id number]. Diagnos is: ICD-10- CM L71.8 Other JOVITA Fitzpatrick 09/13 [facility] [place] [facility] OFFICE O/P EST MOD 30 MIN [id number] Diagnos is: ICD-10- CM F43.12 Post-tr aumatic stress disorde r, chronic R[place]D,ST PATHAK G 10[place]11 [place] [facility] [place] En[facility] [id number] [facility] [place] [facility] [place] En[facility] [id number] [facility] [place] [facility] [place] En[facility] [id number] [facility] [place] [facility] [place] [facility] En[facility] [id number] 10/25 [facility] [place] [facility] [place] En[facility] [id number] 10/25 [facility] [place] [facility] OFFICE O/P EST MOD 30 MIN [id number] Diagnos is: ICD-10- CM 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 [place] [facility] [place] [facility] En[facility] [id number] 11/19 [facility] [place] [facility] [place] [facility] En[facility] [id number] 11/20 [facility] [place] [facility] [place] En[facility] [id number] 11/22 [facility] [place] [facility] [facility] [place] Encounter [id number] 12/31 [facility] [place] [facility] OFFICE O/P EST MOD 30 MIN [id number] Diagnos is: ICD-10- CM F43.12 Post-tr aumatic stress disorde r, chronic ST ZO RICHMOND 01/03 [facility] [place] [facility] [place] [facility] Encounter [id number] 01/14 [facility] [place] [facility] Social History Combined list of available smoking, tobacco, and other social history from Department of Defense and Veterans Affairs facilities. Social History Type Response Date Comment Source Tobacco smoking status NHIS VA-TOBACCO NEVER USED CIGARETTES 11/19/2024 [facility] [place] [facility] [place] [facility] History of tobacco use [place]-TOBACCO NEVER USED OTHER TYPE 11/19/2024 ABRAZO [place]OTT[place] [facility] [place] [facility] History of tobacco use VA-TOBACCO NEVER USED 09/01/2023 ABRAZO [place] [facility] [place] [facility] History of tobacco use MI-TOBACCO QUIT 1 TO < 5 YRS 04/09/2022 [facility] [place] [facility] [place] [facility] History of tobacco use [place]-TOBACCO FORMER USER 01/02/2021 [place] History of tobacco use MI-TOBACCO FORMER USER 01/31/2020 ABRAZO SCOTT[place]ALE [facility] [place] [facility] History of tobacco use [place]-TOBACCO FORMER USER 05/04/2018 [place] History of tobacco use QUIT TOBACCO USE 1-7 YEARS AGO 10/20/2017 [place] History of tobacco use QUIT TOBACCO USE IN PAST YEAR 05/24/2017 reports quitting Jul 2016 [place] History of tobacco use QUIT TOBACCO USE IN PAST YEAR 10/07/2016 reports quitting 08/14/16 [place] History of tobacco use CURRENT SMOKER 08/12/2016 declines smoking cessation grp or meds [place] History of tobacco use CURRENT SMOKER 04/08/2016 does not want to stop [place] History of tobacco use QUIT TOBACCO USE > 7 YEARS AGO 09/12/2008 [place] History of tobacco use CURRENT SMOKER 07/09/2008 Patient smokes four ciggs on a daily bases. [place] History of tobacco use V1-PT DECLINES TOBACCO CESSATION MEDS 02/22/2008 [place] History of tobacco use CURRENT SMOKER 05/31/2007 [place] History of tobacco use V1-PT NOT INTERESTED IN QUIT TOBACCO USE 11/02/2006 [place] History of tobacco use CURRENT SMOKER 05/02/2006 3-5 cigaretts daily [place] History of tobacco use CURRENT SMOKER 05/27/2005 see above [place] History of tobacco use CURRENT SMOKER 02/27/2004 smokes only 3 cigarettes [place] History of tobacco use CURRENT [facility]MOKER [facility] [place] [facility] History of tobacco use CURRENT SMOKER 02/26/2003 occasional use of tobacco [place] History of tobacco use CURRENT SMOKER 09/18/2002 currently smokes 1 or 2 per day [place] History of tobacco use HISTORY OF SMOKING 11/01/2001 quit 1970's [place] Plan of Care List of future care activities from [facility] facilities. Additional future care activities may be listed in the Assessment and Plan section. Date/Time Care Activity Care Activity Detail Facili ty 04/18/2025 AMBULATORY - MEDICINE [facility]ULATORY - [facility] Advance Directives List of completed, amended, or rescinded Advance Directives on record at [facility] facilities. An actual copy of the Directive is not included. Date Advance Directive Provider Source 08/02/2019 ADVANCE DIRECTIVE [facility] 08/02/2019 ADVANCE DIRECTIVE LUIS ONTIVEROS [place] [facility] 05/13/2004 ADVANCE DIRECTIVE KACY ROSARIO [facility]
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
--- OUTSIDE RECORDS SUMMARY | 2025-02-12 12:53 | XMS_ITS | Clinical Summary ---
Author Organization [facility] Address [address] [address] Phone Care Team Providers Care Manager Travel Name Role Phone Case Azul MD Primary Care Provid er Allergies Active Allergy Reactions Criticality Noted Date Comments Other 09/25/2021 Perfumes [place] Dander Medications cholecalciferol (VITAMIN D3) 400 unit tablet Take 400 Units by mouth daily. Active losartan (COZAAR) 100 MG tablet Take 100 mg by mouth daily. Active ibuprofen (ADVIL,MOTRIN) 800 MG tablet Take 800 mg by mouth every 6 (six) hours as needed. Active aspirin 81 MG EC tablet Take 81 mg by mouth daily. Active simvastatin (ZOCOR) 20 MG tablet Take 10 mg by mouth nightly at bedtime. 1/2 tablets of 20 mg Active amLODIPine (NORVASC) 5 MG tablet Take 7.5 mg by mouth daily. Active QUEtiapine (SEROQUEL) 25 MG tablet Take 6.25 mg by mouth nightly at bedtime. Active ascorbic acid, vitamin C, (VITAMIN C) 500 MG tablet Take 500 mg by mouth daily. 500 mg - 1000 mg Active polyethylene glycol 3350 (MIRALAX ORAL) Take 17 g by mouth as needed. Active cyclobenzaprine (FLEXERIL) 5 MG tablet Take 5 mg by mouth. Active Active Problems Problem Noted Date Diagnosed Date Pain in joints 10/09/2021 Assessment & Plan (11/16/2021 3:24 PM EDT): 71 yo male with history of possible gout treated with prednisone in past. He was unable to tolerate allopurinol He reports no flares until recently when he was experiencing severe Left LE pain due to disc extrusion L2 . At that time he reports extreme pain which he attributed to gout in both feet and toes. Pain in feet graduallly self resolved. Most recent uric acid is normal. Currently denies any joint pain, no red , warm or swollen joints Left LE radicular pain has almost resolved with very mild residual proximal left thigh pain He already had neuro surgical consult and surgery was not recommended Unclear of etiology of makenzie foot pain, but has resolved and workup was unrevealing No evidence of underlying inflammatory arthritis For any red warm swollen joints, would recommend aspiration, crystal search for gout/pseudogout crystals, he will call prn F/u prn Assessment & Plan (10/09/2021 2:28 PM EDT): 71 yo male with history of possible gout treated with prednisone in past. He was unable to tolerate allopurinol He reports no flares until recently when he was experiencing severe Left LE pain due to disc extrusion L2 . At that time he reports extreme pain which he attributed to gout in both feet and toes. Pain in feet graduallly self resolved Left LE still with proximal thigh pain Awaiting neuro surgical consult Unclear of etiology of makenzie foot pain Today he has no synovitis on exam Will check labs to evaluate for any underlying inflammatory arthritis For any red warm swollen joints, would recommend aspiration, crystal search for gout/pseudogout crystals F/u one month to review lab results Social History Tobacco Use Types Packs/Day Years Used Date Smoking Tobacco: Never Smokeless Tobacco: Never Education Answer Date Recorded Are you interested in more education? Not on kaitlyn e 10/31/2022 Are you concerned about learning? Not on file 10/31/2022 No 10/31/2022 No 10/31/2022 Digital Access Answer Date Recorded No 11/14/2022 No 11/14/2022 No 11/14/2022 Reliable internet access at home? Not on file 11/14/2022 Device with a working camera? Not on file Sex and Gender Information Value Date Recorded Sex Assigned at Not on file Legal Sex Male 5:57 PM EST Gender Identity Not on file Sexual Orientation Not on file Last Filed Vital Signs Vital Sign Reading Time Taken Comments Blood Pressure 132/70 11/12/2021 2:48 PM EDT Pulse 68 11/12/2021 2:48 PM EDT Temperature - - Respiratory Rate 16 10/06/2021 2:41 PM EDT Oxygen Saturation 98% 11/12/2021 2:48 PM EDT Inhaled Oxygen Concentration - - Weight 73 kg (161 lb) 11/12/2021 2:48 PM EDT Height 167.6 cm (5' 5.98 ) 11/12/2021 2:48 PM ED T Body Mass Index 11/12/2021 2:48 PM EDT Plan of Treatment Health Maintenance Due Date Last Done Comments CREATININE LEVEL 1949 LIPID PANEL 1949 POTASSIUM LEVEL 1949 DEPRESSION SCREENING 1961 HEPATITIS C SCREENING 1967 COLOGUARD 1994 COLONOSCOPY 1994 COLORECTAL CANCER SCREENING 1994 FIT TEST 1994 FOBT 1994 SIGMOIDOSCOPY 1994 VIRTUAL COLONOSCOPY 1994 ZOSTER VACCINES (3 of 3) 09/08/2021 022, 01/19/2012 COVID-19 VACCINE (3 - 2023-2 5 season) 2024 09/17/2020, 08/18/2020 RSV VACCINE (1 - 1-dose 75+ series) 2024 Adult Td,Tdap Booster 07/07/2031 07/07/2021 PNEUMOCOCCAL VACCINES (50+ years) Completed 05/24/2017, 04/22/2015, 02/23/2011 SMOKING STATUS SCREENING (On ce After 26 Yrs) Completed 10/06/2021 HEPATITIS A VACCINES Aged Out No long er eligible based on patient's age to complete this topic HIB VACCINES Aged Out No longer eligi ble based on patient's age to complete this topic MENINGOCOCCAL VACCINES (ACWY) Aged Out No longer eligible based on patient's age to complete this topic MENINGOCOCCAL VACCINES (B) Aged Out N o longer eligible based on patient's age to complete this topic Medical Devices Not on file Insurance MEDICARE PART A & B ResQ™ Medical MEDEX SUPPLEMENT MEDICARE PART A & B ResQ™ Medical MEDEX SUPPLEMENT MEDICARE PART A & B ResQ™ Medical MEDEX SUPPLEMENT MEDICARE PART A & B ResQ™ [place] [address] MEDICARE PART A & B [place] [employer] [place] [address] MEDICARE PART A & B [place] [employer] MEDEX SUPPLEMENT MEDICARE PART A & B ResQ™ Medical MEDEX SUPPLEMENT MEDICARE PART A & B ResQ™ Medical MEDEX SUPPLEMENT MEDICARE PART A & B ResQ™ Medical MEDEX SUPPLEMENT Care Teams Manager Travel Relationship Specialty Start Date End Date Case Azul MD [address] [place] [phone] PCP - General Pediatrics 09/17/21 Additional Source Comments The information contained in this document represents components of the legal health record. It is not the complete legal health record.[facility]
--- OUTSIDE RECORDS SUMMARY | 2025-02-12 12:54 | XMS_ITS | Encounter Summary ---
Author Name [facility] Organization [facility] Address [address] [place] [address] Care Team Providers Care Tooth Clerk Name Role Phone LAUREANO MURILLO Primary Care [...] [place] SUPPLEMEN DESIRE [facility]ARIZEX [facility] Daxa Jun 20, 2014 [id number] Keven TAVERAS PATIENT MEDICARE (WNR) MEDICARE (M) PART A Sep 18, 2006 PART A [id number] Keven TAVERAS PATIENT MEDICARE (WNR) MEDICARE (M) PART B Sep 18, 2006 PART B [id number] Keven TAVERAS PATIENT Selected Encounter This section includes the information on record at [place] for the Encounter. Date/Time Encounter Type Encounter Description Reason Pro vider Source IHE Encounter Template Text not used by VA Advance Directives: All historical and current Section Date Range: From patient's date of to the date document was created. This section includes ALL of a patient's completed or amended [place] Advance and Rescinded Directives. The entries below indicate that a directive exists for the patient, but an actual copy is not included with this document. The data comes from all [place] facilities. Date Advance Directives Provider Source Aug 02, 2019 ADVANCE DIRECTIVE ROCÍO WOODS [facility] Aug 02, 2019 ADVANCE DIRECTIVE LUIS ONTIVEROS [place] [facility] [place] [facility] May 13, 2004 AD[facility]ANCE DIRECTIVE [facility]
--- OUTSIDE RECORDS SUMMARY | 2025-02-12 12:54 | XMS_ITS | Patient Health Record ---
Author Organization [facility] Address [address] [place] [address] Care Team Providers Care Education Program Coordinator Name Role Phone Marquez Eisenberg MD Primary Care Provider Unavailguillaume e Nae Adams Unavailable [phone] Reason For Referral No Information Medications Medication SIG (Take, Route, Frequency, Duration) Notes Start Date End Date Status Ibuprofen Active Multi Vitamin/Minerals Active Baby Aspirin 81 MG 1 tablet Orally Once a day; Duration: 30 day(s) Active Hydrocortisone Activ e Losartan Potassium 50 MG 1 tablet Orally Once a day; Duration: 30 day(s) Active SEROquel 25mg Active Zocor 10mg Active Problems Problem Type SNOMED Code ICD Code Onset Dates Problem Status W/U Status Risk Notes Problem Ganglion cyst (64793520) Ganglion Cyst (727.43) Active confirmed Problem Bursitis (83122836) Bursitis (727.3) Active confirmed Problem Edema (29638279) Edema (782.3) Active confirmed Problem Pain in limb (97058273) Pain in Limb (729.5) Active confirmed Problem Gout (51640000) GOUT (274.00) Active confirmed Plan Of Treatment Pending Test Test Name Order Date X ray : Foot, left 3V 02/16/2011 07185- Removal of Foreign Body, Subcut 0 01/04/2012- Ganglion Cyst Injection/Aspiratio n 12/05/2012- Ganglion Cyst Injection/Aspiratio n 02/16/2011 Insurance Providers Payer Name Payer Address Payer Phone Subscriber Number Group Number Insured Name Patient Relationship to Insured Coverage Start Date Coverage End Date Medicare National [employer] [address] [place] [address] [phone] [id number] 5 FillSuresh doty Self - patient is the insured [facility] Others [address] [place] [address] [phone] [id number] Suresh Davis Self - patient is the insured Medical (General) History Medical History History ICD Code Gout Arthritis cancer hyperlipidemia hypertension Surgical History Surgery Date(Month/Year) appendectomy prostatectomy oral surgery
[2025-02-20 12:20] VITALS: BP 143/60; PULSE 68; RESP 16; TEMP 36.7; O2SAT 98; BMI 26.0
[2025-02-20] MEDS: Lactated Ringers 1,000 ML 100 ML IVCONT (12:35)
--- NOTE | 2025-02-20 12:35 | HO.ANESPROP2 ---
Documented by User: Gretel Peña NP 02/19/25 14:36 HPI - Anesthesia Eval Consult details Narrative: 74yo M for Colonoscopy No surgical H&P avail and limited info available in other health info systems [facility] Past Medical History Medical History (Updated 02/19/25 @ 14:34 by Gretel Peña NP) Prostate cancer PTSD (post-traumatic stress disorder) HLD (hyperlipidemia) HTN (hypertension) Surgical History Surgical History (Updated 02/19/25 @ 14:34 by Gretel Peña NP) H/O radical prostatectomy Social History Social History Are you DNR?: No Advance Directives: No Advance Directives Information Provided: Yes Meds Allergies Allergy/AdvReac Type Severity Reaction Status Date / Time No Known Allergies Allergy Verified 02/19/25 14:36 Home Medications ?Medication ?Instructions ?Recorded ?Confirmed ?Last Taken ?Type amlodipine 5 mg tablet 5 mg PO DAILY 02/20/25 02/20/25 02/20/25 History irbesartan 150 mg tablet 150 mg PO DAILY 02/20/25 02/20/25 02/20/25 History Assessment and Plan Assessment Anesthesia Assessment: Chart Reviewed Documented by User: Julianna Beatty DO 02/20/25 13:01 HPI - Anesthesia Eval Consult details Narrative: 74yo M for Colonoscopy History of difficult intubation per patient - he had a difficult intubation card in his wallet but no further details available. [facility] Past Medical History Medical History (Updated 02/19/25 @ 14:34 by Gretel Peña NP) Prostate cancer PTSD (post-traumatic stress disorder) HLD (hyperlipidemia) HTN (hypertension) Family History Family history of problems with anesthesia: No Surgical History Surgical History (Updated 02/19/25 @ 14:34 by Gretel Peña NP) H/O radical prostatectomy History of Problems with Anesthesia: No Social History Social History Are you DNR?: No Advance Directives: No Advance Directives Information Provided: Yes Meds Allergies Allergy/AdvReac Type Severity Reaction Status Date / Time No Known Allergies Allergy Verified 02/19/25 14:36 Home Medications ?Medication ?Instructions ?Recorded ?Confirmed ?Last Taken ?Type amlodipine 5 mg tablet 5 mg PO DAILY 02/20/25 02/20/25 02/20/25 History irbesartan 150 mg tablet 150 mg PO DAILY 02/20/25 02/20/25 02/20/25 History Exam Exam Date and Time: 02/20/25 1240 Height,Weight and Vital Signs: Height 5 ft 6 in Weight 73 kg Vital Signs Temperature 98.1 F 02/20/25 12:20 Pulse Rate 68 02/20/25 12:20 Respiratory Rate 16 02/20/25 12:20 Blood Pressure 143/60 H 02/20/25 12:20 Pulse Oximetry 98 02/20/25 12:20 Oxygen Delivery Method Room Air 02/20/25 12:20 Temperature 98.1 F 02/20/25 12:20 Pulse Rate 68 02/20/25 12:20 Respiratory Rate 16 02/20/25 12:20 Blood Pressure 143/60 H 02/20/25 12:20 Pulse Oximetry 98 02/20/25 12:20 Oxygen Delivery Method Room Air 02/20/25 12:20 Airway Mallampati Class: II TM Dist: >3cm Neck ROM: Full Partial: Upper and Lower Heart: S1S2 Lungs: CTAB Assessment and Plan Assessment Anesthesia Assessment: Anesthesia Plan Discussed and Chart Reviewed Final Anesthetic Review Family History of Problems with Anesthesia: No History of Problems with Anesthesia: No NPO: Yes ASA Class: II Final Preanesthetic Review: No Changes in Pt Med Stat, Meds/Allgs Chart Reviewed, Consent Obtained/Reviewed and Anes Risks/Benef Reviewed Patient Risk: Low Procedure Risk: Low Anesthetic Plan Anesthetic Plan: MAC: and Agree w/ Assess. and Plan Disposition: Standard PACU
--- NOTE | 2025-02-20 13:04 | MHC.SHP ---
Pre-Procedural Eval Section A - 24 Hr Update-Section A only Date of Service: 02/20/25 The patient is an INPATIENT: No Changes since office visit: No Cold of Flu in the past 2 weeks, No New Medical Problems, No Changes in Medication and No Patient answered all questions The patient has been examined within 24 hours of the surgical procedure. The History & Physical has been completed within 30 days and I have reviewed it.: Yes Section B - Complete if H&P > 30 days Chief Complaint: Unspecified abdominal pain Allergies: Allergies Allergy/AdvReac Type Severity Reaction Status Date / Time No Known Allergies Allergy Verified 02/19/25 14:36 Plan I have reviewed the history and physical and performed a pertinent physical examination on my patient. No changes have occurred unless specified. Time Spent With Patient Time: Total time managing care of this patient today ____ minutes.
[2025-02-20 13:40] VITALS: BP 108/50; PULSE 52; RESP 16; TEMP 36.2; O2SAT 98
[2025-02-20 13:55] VITALS: BP 106/45; PULSE 55; RESP 16; O2SAT 98
--- NOTE | 2025-02-20 23:52 | OP_ITS ---
DATE OF SERVICE: 02/20/2025 SURGEON: Ramiro Villar MD INDICATIONS: Abnormal x-ray of the GI tract PREOPERATIVE DIAGNOSIS: POSTOPERATIVE DIAGNOSIS: PROCEDURE PERFORMED: ESTIMATED BLOOD LOSS: COMPLICATIONS: ANESTHESIA: Monitored anesthesia care. ASSISTANTS: SPECIMENS: PROCEDURE: Colonoscopy to the terminal ileum with biopsy. DESCRIPTION OF PROCEDURE: A history and physical was performed. The risks and benefits of the procedure were explained to the patient, and informed consent was obtained. The patient was placed in the left lateral decubitus position. A digital rectal exam was performed and was found to be normal. The Olympus pediatric video colonoscope was introduced into the rectum and advanced to the cecum. The cecum was identified by transillumination, palpation, and identification of ileocecal valve. Examination was performed. The scope was removed. He tolerated the procedure well and was returned to the recovery area in stable condition. FINDINGS: The terminal ileum was examined and appeared normal. The visualized colonic mucosa was normal. The quality of the prep was good. No polyps were identified. There was no colitis seen. Random biopsies were obtained from the sigmoid to evaluate for microscopic colitis. Retroflexed examination showed small internal hemorrhoids. IMPRESSION: Normal colonoscopy. RECOMMENDATION: Follow up the biopsy results. MD NUNO Joya/JORDEN / [id number]
== END 2025-02-20 14:40 | disposition home or self-care (01) ==
PROVIDERS: PCP Internal Medicine; Visit Provider Internal Medicine Gastroenterology
PROC: 0DJD8ZZ Inspection of Lower Intestinal Tract, Via Natural or Artificial Opening Endoscopic (ICD-10-PCS; CPT 45378; principal; 2025-02-20 13:00)
DX: K58.1 Irritable bowel syndrome with constipation (principal); R93.3 Abnormal findings on diagnostic imaging of other parts of digestive tract; K64.8 Other hemorrhoids; Z86.0101 Personal history of adenomatous and serrated colon polyps; I10 Essential (primary) hypertension; Z85.46 Personal history of malignant neoplasm of prostate; Z87.891 Personal history of nicotine dependence
CPT/HCPCS: 45380; 88305; J2704